=== PATIENT | male | born 1935 | race Caucasian/White ===

== ENCOUNTER → 2020-03-17 10:28 | Outpatient (BNVA) | payer MEDICARE, OTHER, SELFPAY | PROVIDERS: Family Provider Family Medicine; PCP Physician Assistant; Referring Provider Physician Assistant; Visit Provider Anesthesiology Pain Medicine | DX: M51.16 Intervertebral disc disorders with radiculopathy, lumbar region (principal); M51.17 Intervertebral disc disorders with radiculopathy, lumbosacral region; M47.816 Spondylosis without myelopathy or radiculopathy, lumbar region; M48.062 Spinal stenosis, lumbar region with neurogenic claudication; M54.9 Dorsalgia, unspecified; Z79.891 Long term (current) use of opiate analgesic | CPT/HCPCS: 99203; 99204 ==

== ENCOUNTER 2022-01-08 10:21 | Emergency (ER) | payer MEDICARE, OTHER, SELFPAY ==
[2022-01-08] VITALS (12 sets, daily range): BP systolic 103–149; BP diastolic 69–87; PULSE 85–101; RESP 18; O2SAT 93–98; BMI 31.3
--- NOTE | 2022-01-08 10:26 | W.ED.GIBLEED ---
HPI - GI Bleed General: Chief complaint: GI Bleed Stated complaint: RECTAL BLEED Time Seen by Provider: 01/08/22 10:26 History of Present Illness: Mr. Snyder is an 86-year-old gentleman on full dose aspirin for history of stroke who presents to the emergency department due to blood in stool. He reports being at his baseline health the past few days without abdominal discomfort or changes in bowel movements. This morning he noted quite a bit of blood that was dark red in his stool and toilet bowl. He also subsequently developed left anterior chest discomfort. Reports episode remotely of blood in stool in the past. Remote history of colonoscopy. No other specific changes in health, exacerbating, or alleviating factors identified. Onset (ago): hour(s) Review of Systems General: Reports: 10 or more systems reviewed and unremarkable except in HPI and below PFSH ED PFSH: Medical History CVA (cerebral vascular accident) Diabetes Diastolic dysfunction Dyslipidemia HTN (hypertension) Sleep apnea Family History Father Stroke Mother CHF (congestive heart failure) Social History Smoking and tobacco status: former smoker Second hand smoke exposure: No Alcohol intake: current Alcohol intake frequency: 0-2 Drinks per Day Alcohol type: hard liquor Household members: spouse Marital status: service: No Current occupational status: retired History of recent travel: No Physical Exam Const: COMMON NORMALS: alert GENERAL APPEARANCE: cooperative and well developed HENMT: COMMON NORMALS: normocephalic and atraumatic HEAD & SCALP: normocephalic and atraumatic Eye: COMMON NORMALS: conjunctivae normal CONJUNCTIVA: Yes conjunctivae normal SCLERA: sclerae normal Neck/C-Spine: COMMON NORMALS: supple GENERAL: Yes trachea midline Resp: COMMON NORMALS: clear to auscultation bilaterally EFFORT & INSPECTION: Yes able to speak in complete sentences AUSCULTATION: clear to auscultation bilaterally Cardio: COMMON NORMALS: regular rate and regular rhythm RATE: regular rate RHYTHM: regular rhythm GI: COMMON NORMALS: Soft to palpation PALPATION: Yes Soft to palpation and No Tenderness to palpation present (GI) Extremity: GENERAL: Yes normal exam except as noted and No edema Neuro: COMMON NORMALS: moves all extremities SENSORIUM/ORIENTATION: Yes alert and No Orientation impaired Psych: COMMON NORMALS: mental status grossly normal and Normal thought process present THOUGHT PROCESS: Normal thought process present Course ED course: - Patient was seen and evaluated by me at bedside - Patient placed on cardiac monitors, IV access obtained - Initial evaluation notable for exam as above. Vitally satisfactory. - Labs personally interpreted by me. EKG showing atrial fibrillation with right bundle branch block. No STEMI. -IV fluids given - Labs notable for no leukocytosis, normal hemoglobin. INR normal. Metabolic panel without significant abnormality, BUN normal. Delta troponin negative. - Imaging notable for no acute pathology identified on CT abdomen pelvis - Upon serial reexamination after treatment the patient was similar - Based on patient history, evaluation, and testing as interpreted the most likely cause of the patient's condition is GI bleed - The results of ED evaluation were discussed with the patient including possible disposition options. I offered admission which the patient declined. I discussed prescriptions and/or symptomatic cares (if applicable) including appropriate and responsible use, followup plan, and return precautions. The patient verbalized understanding and felt safe for discharge. - Patient discharged in satisfactory condition. Note: Click bubbles or prepopulated scott in note writing are used for assistance with data collection and billing and are inherently more limited than narrative and other text portions of this note. Please use narrative for additional clinical history and defer to narrative/free test for any case of contradictory information. If information appears in only free text or click bubble it should be considered present or absent as reported. Please contact note typewriter assembler for clarifications of clinical information or contradictory information. MDM is a brief summary, contradictory or erroneous seeming information should be clarified and full note should be reviewed. Vital Signs: Vital signs: Vital Signs Pulse Rate 101 H 01/08/22 16:37 Respiratory Rate 18 01/08/22 16:37 Blood Pressure 149/83 01/08/22 16:37 Pulse Oximetry 95 01/08/22 16:37 Oxygen Delivery Sc thod 01/08/22 16:37 MDM - GI Bleed Medical Decision Making 86-year-old gentleman on aspirin presenting with GI bleed. Patient did not have recurrence while in the emergency department. Vitals and hemoglobin satisfactory. Offered admission which patient declined. Satisfactory for outpatient management with follow-up for endoscopy. Strict return precautions given. Medical Records I reviewed the patient's medical records. Lab Data I reviewed the patient's lab results. : 01/08/22 10:32 01/08/22 10:40 Radiology Impressions Abdomen/Pelvis CT 01/08/22 12:07 IMPRESSION: 1. No acute abdominal or pelvic findings. 2. Distal colon and sigmoid diverticulosis without acute diverticulitis. No active areas of hemorrhage. 3. LEFT renal cyst. 4. No adenopathy or free air. Laboratory Results WBC 9.0 10^3/uL (4.0-10.0) 01/08/22 10:32 RBC 4.51 10^6/uL (4.1-5.3) 01/08/22 10:32 Hgb 15.3 g/dL (11.7-16.6) 01/08/22 10:32 Hct 44.8 % (42.0-52.0) 01/08/22 10:32 MCV 99.3 fl (80-94) H 01/08/22 10:32 MCH 33.9 pg (28.0-34.0) 01/08/22 10:32 MCHC 34.2 g/dL (30.0-36.0) 01/08/22 10:32 RDW 12.9 % (12.1-15.1) 01/08/22 10:32 Plt Count 215 10^3/cmm (130-400) 01/08/22 10:32 MPV 12.1 fL (7.4-10.4) H 01/08/22 10:32 Neut % (Auto) 53.4 % 01/08/22 10:32 Lymph % (Auto) 35.5 % 01/08/22 10:32 [place] % (Auto) 8.1 % 01/08/22 10:32 Eos % (Auto) 0.9 % 01/08/22 10:32 Baso % (Auto) 1.3 % 01/08/22 10:32 Neut # (Auto) 4.78 10^3/uL (1.8-7.7) 01/08/22 10:32 Lymph # (Auto) 3.2 10^3/uL (0.8-4.8) 01/08/22 10:32 [place] # (Auto) 0.7 10^3/uL (0.2-0.9) 01/08/22 10:32 Eos # (Auto) 0.1 10^3/uL (0.0-0.8) 01/08/22 10:32 Baso # (Auto) 0.1 10^3/uL (0.0-0.1) 01/08/22 10:32 Nucleated RBC % (auto) 0 % 01/08/22 10:32 Nucleated RBCs # 0.0 /100WBC 01/08/22 10:32 PT 13.20 SECONDS (12.1-14.9) 01/08/22 10:32 INR 0.97 (0.8-1.2) 01/08/22 10:32 APTT 23.6 SECONDS (23.9-36.7) L 01/08/22 10:32 Sodium 138 mmol/L (136-145) 01/08/22 10:40 Potassium 4.7 mmol/L (3.5-5.1) 01/08/22 10:40 Chloride 101 mmol/L (98-107) 01/08/22 10:40 Carbon Dioxide 25 mmol/L (22-29) 01/08/22 10:40 Anion Gap 16.7 (5-19) 01/08/22 10:40 BUN 15 mg/dL (8-23) 01/08/22 10:40 Creatinine 1.2 mg/dL (0.7-1.2) 01/08/22 10:40 GFR Calculation Not Reportable 01/08/22 10:40 Glucose 148 mg/dL (65-115) H 01/08/22 10:40 Calculated Osmolality 290 mOsm/kg (285-295) 01/08/22 10:40 Lactate 1.9 mmol/L (0.5-2.2) 01/08/22 14:53 Calcium 9.3 mg/dL (8.5-10.5) 01/08/22 10:40 Total Bilirubin 0.5 mg/dL (0.15-1.2) 01/08/22 10:40 AST 34 U/L (0-40) 01/08/22 10:40 ALT 25 U/L (0-41) 01/08/22 10:40 Alkaline Phosphatase 42 IU/L (40-130) 01/08/22 10:40 Troponin T Baseline 50 ng/L (0-15) H 01/08/22 10:40 Troponin T 120 Minute 41.41 ng/L (0-15) H 01/08/22 12:40 Delta Troponin T -8.59 ABS# (0-10) L 01/08/22 12:40 Total Protein 6.6 g/dL (6.6-8.7) 01/08/22 10:40 Albumin 3.8 g/dL (3.5-5.2) 01/08/22 10:40 Globulin 2.8 g/dL (1.3-4.6) 01/08/22 10:40 Blood Type AB Positive 01/08/22 10:40 Rho(D) Type Positive 01/08/22 10:40 Antibody Screen Negative 01/08/22 10:40 Discharge Plan Discharge Patient Disposition: Home Clinical Impression: GI bleed Condition: Stable Prescriptions: New Protonix 40 mg tablet,delayed release (DR/EC) 40 mg PO BID 14 Days Qty: 28 0RF No Action aspirin 325 mg tablet 325 mg PO DAILY nitroglycerin 0.4 mg tablet, sublingual 0.4 mg SUBLINGUAL Q5M PRN (Reason: Chest Pain) Rx Instructions: do not exceed 3 doses per episode gabapentin 100 mg capsule 100 mg PO BID Qty: 60 0RF prednisone 20 mg Tablet See Rx Instructions .ROUTE .COMPLEX Rx Instructions: DIRECTED FOR 21 DAYS Discharge Orders: Discharge ED (Routine); Ordered 01/08/22 Ordered By: Jimmie Zhong Referrals: Jeni Tai PA [Primary Care Provider] - Discharge Diet: Usual diet Discharge Activity: Increase activity as tolerated Activity Restrictions/Additional Instructions: Thank you for visiting the emergency department. You were seen and evaluated for blood per rectum. The exact cause of the symptoms is unclear. I recommend follow-up with your primary care provider and GI/general surgery for consideration of endoscopy. I will message case management for assistance with scheduling this. Please return to the emergency department for recurrent episodes, lightheadedness, dizziness, syncope, shortness of breath, chest pain, or anything else that you are concerned about a feel needs emergency department evaluation. Coding Level of Care Code ED Agricultural Equipment Design Engineer for Christos Fwjanie Exam Comprehensive
[2022-01-08 10:54] LABS: Basophils # 0.1 10^3/uL (0.0-0.1); Basophils % 1.3 %; Eosinophils # 0.1 10^3/uL (0.0-0.8); Eosinophils % 0.9 %; Hematocrit 44.8 % (42.0-52.0); Hemoglobin 15.3 g/dL (11.7-16.6); Lymphocytes # 3.2 10^3/uL (0.8-4.8); Lymphocytes % 35.5 %; Mean Corpuscular HGB Conc 34.2 g/dL (30.0-36.0); Mean Corpuscular Hemoglobin 33.9 pg (28.0-34.0); Mean Corpuscular Volume 99.3 fl (80-94); Mean Platelet Volume 12.1 fL (7.4-10.4); Monocytes # 0.7 10^3/uL (0.2-0.9); Monocytes % 8.1 %; Neutrophils # 4.78 10^3/uL (1.8-7.7); Neutrophils % 53.4 %; Nucleated Red Blood Cells % 0 %; Platelet Count 215 10^3/cmm (130-400); Red Blood Count 4.51 10^6/uL (4.1-5.3); Red Cell Distribution Width 12.9 % (12.1-15.1)
--- NOTE | 2022-01-08 11:05 | ECG_ITS ---
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 Measurements Intervals [place] Rate: 83 P: [place]: QRS: 38 QRSD: 138 T: -22 QT: 396 QTc: 467 Interpretive Statements ATRIAL FIBRILLATION RIGHT BUNDLE BRANCH BLOCK [120+ ms QRS DURATION, UPRIGHT V1, 40+ ms S IN I/aVL/V4/V5/V6] No previous ECG available for comparison Electronically Signed On 01-08-2022 17:23:01 CDT by Krystle Ortiz M.D. [id number] f
[2022-01-08 11:15] LABS: INR 0.97 (0.8-1.2)
[2022-01-08 11:16] LABS: Partial Thromboplastin Time 23.6 SECONDS (23.9-36.7)
[2022-01-08 11:18] LABS: Alanine Aminotransferase 25 U/L (0-41); Albumin Level 3.8 g/dL (3.5-5.2); Alkaline Phosphatase 42 IU/L (40-130); Aspartate Amino Transferase 34 U/L (0-40); Blood Urea Nitrogen 15 mg/dL (8-23); Calcium 9.3 mg/dL (8.5-10.5); Carbon Dioxide 25 mmol/L (22-29); Chloride 101 mmol/L (98-107); Globulin 2.8 g/dL (1.3-4.6); Glucose 148 mg/dL (65-115); Osmolality Calculated 290 mOsm/kg (285-295); Sodium 138 mmol/L (136-145); Total Bilirubin 0.5 mg/dL (0.15-1.2); Total Protein 6.6 g/dL (6.6-8.7)
[2022-01-08 11:40] LABS: Anion Gap 16.7 (5-19); Potassium 4.7 mmol/L (3.5-5.1)
[2022-01-08 12:07] LABS: Troponin(5th) Baseline 50 ng/L (0-15)
--- NOTE | 2022-01-08 12:07 | CT_ITS ---
WS: [id number] CT ABDOMEN AND PELVIS WITH CONTRAST HISTORY: GI bleed TECHNIQUE: Imaging performed of the abdomen and pelvis with IV contrast. Single phase imaging of the abdomen. Coronal and sagittal reformats are submitted. All CT scans at [facility] use at [address] one of these dose optimization techniques: automated exposure control; mA and/or kV adjustment per patient size (includes targeted exams where dose is matched to clinical indication); or iterative re construction. IV CONTRAST: Omnipaque 350; 95 mL IV. Oral contrast: No DLP: 740.33 mGy.cm COMPARISON: 11/04/2015 Lower thorax: Lung bases are clear. Mild cardiac enlargement. No hiatal hernia. Liver/biliary system: Normal size liver with diffuse mild hepatic steatosis. Gallbladder: Normal. No gallstones or wall thickening. No pericholecystic fluid. Pancreas: Normal size pancreas and pancreatic duct. No adjacent inflammation. Spleen: Normal size spleen. No mass or infarct. Adrenal glands: Normal. Right kidney: Mild perinephric stranding and mild atrophy. No solid mass. Left kidney: Mild atrophy and perinephric stranding. Exophytic cyst from the lower pole measures 4.0 x 3.9 cm. Aorta: Mild atherosclerosis aorta. Lymphadenopathy: None. Free fluid: None. GI tract: Normal appearance of the stomach and small bowel. Numerous diverticula in the descending an d sigmoid colon. No adjacent inflammation. The appendix is not definitely identified. No secondary ev idence for appendicitis. No focal enhancement or active bleeding identified. Abdominal wall: Unremarkable abdominal wall. No hernia. Pelvis: No free fluid or adenopathy. No distended urinary bladder. Bones: Mild curvature lumbar spine. L5 anterolisthesis by [address]/CT abdomen pelvis w con* [id number] IMPRESSION: 1. No acute abdominal or pelvic findings. 2. Distal colon and sigmoid diverticulosis without acute diverticulitis. No ac tive areas of hemorrhage. 3. LEFT renal cyst. 4. No adenopathy or free air.
[2022-01-08 12:09] LABS: Lactate (Lactic Acid level) 3.2 mmol/L (0.5-2.2)
[2022-01-08] MEDS: sodium chloride 0.9% 500 ML 999 ML IV (12:34)
--- NOTE | 2022-01-08 13:05 | ECG_ITS ---
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 Measurements Intervals [place] Rate: 94 P: [place]: QRS: 56 QRSD: 144 T: -23 QT: 381 QTc: 478 Interpretive Statements ATRIAL FIBRILLATION WITH ABERRANT CONDUCTION OR VENTRICULAR PREMATURE COMPLEXES RIGHT BUNDLE BRANCH BLOCK [120+ ms QRS DURATION, UPRIGHT V1, 40+ ms S IN I/aVL/V4/V5/V6] Compared to ECG 01/08/2022 10:39:59 Ventricular premature complex(es) now present Aberrant conduction of supraventricular beat(s) now present Electronically Signed On 01-08-2022 17:47:22 CDT by Krystle Ortiz M.D. [id number]
[2022-01-08 13:47] LABS: Troponin 5 2HR 41.41 ng/L (0-15)
[2022-01-08] MEDS: iohexol 350 mg/mL 100 mL Btl IV (13:47)
[2022-01-08 13:50] LABS: Troponin 5 2HR Delta -8.59 ABS# (0-10)
[2022-01-08 16:03] LABS: Lactate (Lactic Acid level) 1.9 mmol/L (0.5-2.2)
== END 2022-01-08 16:39 | disposition home or self-care (01) ==
PROVIDERS: Emergency Provider Emergency Medicine; PCP Physician Assistant
DX: K92.2 Gastrointestinal hemorrhage, unspecified (principal); Z79.82 Long term (current) use of aspirin; Z86.73 Personal history of transient ischemic attack (TIA), and cerebral infarction without residual deficits; E11.9 Type 2 diabetes mellitus without complications; E78.5 Hyperlipidemia, unspecified; I10 Essential (primary) hypertension; Z87.891 Personal history of nicotine dependence
CPT/HCPCS: 74177; 80053; 83605; 84484; 85025; 85610; 85730; 86850; 86900; 93005; 99285; J7040; Q9967

== ENCOUNTER 2022-03-01 15:35 | Emergency (ER) | payer MEDICARE, OTHER, SELFPAY ==
[2022-03-01 15:39] VITALS: BP 145/94; PULSE 78; RESP 16; TEMP 36.7; O2SAT 96
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
[2022-03-01] MEDS: HYDROcodone-acetaminophen 5-325 mg Tablet 1 TAB PO (17:44)
[2022-03-01] MEDS: cephALEXin 500 mg Capsule PO (17:44)
[2022-03-01] MEDS: tetanus-dipt-pertussis 0.5 mL SDV IM (17:48)
--- NOTE | 2022-03-02 10:11 | DCPLANNER ---
Addendum entered by Mariam Spargue 03/03/22 15:09: manager wholesale had the following message from the ortho clinic regarding follow up appointment: Patient stated he gets around fine and declined this appt with Dr. Serra Original Note: manager wholesale had message to schedule a follow up appointment for patient with ortho. manager wholesale sent patients information to the front office staff at ortho. Patients information will be printed and reviewed. Clinic will call patient with appointment information.
== END 2022-03-01 17:56 | disposition home or self-care (01) ==
PROVIDERS: Emergency Provider Emergency Medicine; PCP Physician Assistant
DX: S90.851A Superficial foreign body, right foot, initial encounter (principal); Z79.82 Long term (current) use of aspirin; Z86.73 Personal history of transient ischemic attack (TIA), and cerebral infarction without residual deficits; E11.9 Type 2 diabetes mellitus without complications; E78.5 Hyperlipidemia, unspecified; I10 Essential (primary) hypertension; Z87.891 Personal history of nicotine dependence; W34.00XA Accidental discharge from unspecified firearms or gun, initial encounter; Z23 Encounter for immunization
CPT/HCPCS: 73620; 90471; 90715; 99284

== ENCOUNTER 2022-08-25 11:54 | Emergency (ER) | payer MEDICARE, OTHER, SELFPAY ==
[2022-08-25 11:56] VITALS: BP 153/96; PULSE 76; RESP 16; TEMP 36.8; O2SAT 97; BMI 30.4
[2022-08-25 12:03] VITALS: BP 153/96; PULSE 77; RESP 21; O2SAT 96
--- NOTE | 2022-08-25 12:12 | ED_ITS ---
HPI - Back Pain/Injury General: Chief Complaint: Back Pain/Injury Stated Complaint: lower back pain. fall tuesday Time Seen by Provider: 08/25/22 11:58 Mode of arrival: EMS History of Present Illness: Patient presents to the ER with a history of falling on his buttock region approximately 5 days ago. Patient states he landed more on his right side than his left. Patient does have a history of chronic low back pain this seems to have worsened his low back pain as well as injured his sacral area. Pain does stay in his areas and does not radiate down his legs. Patient has no problems with bowel or bladder. MD elicited complaint: fall Pertinent past history: prior back pain and recent trauma Onset (ago): day(s) (Approximately 5 days ago) Severity: moderate Similar Symptoms Previously: Yes Quality: dull and aching Location: lumbar spine and sacrum Radiation: none Exacerbating factors: movement Relieving factors: none Associated symptoms: Reports no associated symptoms; Deny abdominal pain, chills, dysuria, fever(s), nausea or vomiting Treatments prior to arrival: other (EMS administered 30 mg of Toradol in route) Work related injury: No Review of Systems General: Reports: 10 or more systems reviewed and unremarkable except in HPI and below Const: Denies: fever(s) or chills Eyes: Denies: change in vision ENMT: Denies: throat pain or odynophagia Card: Denies: chest pain, palpitations, irregular heart rhythm or edema Resp: Denies: dyspnea, productive cough or non-productive cough GI: Reports: diarrhea; Denies: abdominal pain, nausea or vomiting : Denies: flank pain, difficulty urinating, dysuria or urinary frequency Musc: Reports: back pain Skin/Breast: Denies: rash, pruritus or erythema Neuro: Denies: headache(s), numbness in extremities or weakness in extremities Psych: Denies: anxiety or depression Endo: Denies: polyuria or polydipsia Amado/Lymph: Denies: easy bruising or easy bleeding All/Imm: Denies: urticaria or throat swelling PFSH ED PFSH: Medical History CVA (cerebral vascular accident) Diabetes Diastolic dysfunction Dyslipidemia HTN (hypertension) Sleep apnea Family History Father Stroke Mother CHF (congestive heart failure) Social History Smoking and tobacco status: former smoker Second hand smoke exposure: No Alcohol intake: current Alcohol intake frequency: 0-2 Drinks per Day Alcohol type: hard liquor Household members: spouse Marital status: service: No Current occupational status: retired Physical Exam Const: COMMON NORMALS: no acute distress, average body habitus, patient oriented x3, no limitations, healthy appearing, alert and well nourished HENMT: COMMON NORMALS: normocephalic, atraumatic and hearing grossly normal bilaterally HEAD & SCALP: normocephalic and atraumatic Neck/C-Spine: COMMON NORMALS: full ROM, no lymphadenopathy, supple, no JVD and Thyroid normal THYROID: Thyroid normal Chest: COMMONS NORMALS: normal inspection of the chest and normal palpation of entire chest wall Resp: COMMON NORMALS: normal respiratory effort, No retractions, No use of accessory muscles and clear to auscultation bilaterally AUSCULTATION: clear to auscultation bilaterally Cardio: COMMON NORMALS: no JVD, regular rate, regular rhythm, S1 normal heart sound present, S2 normal heart sound present and No gallops present (Cardio) RATE: regular rate RHYTHM: regular rhythm HEART SOUNDS: S1 normal heart sound present and S2 normal heart sound present GI: COMMON NORMALS: Normal to inspection, nondistended, normoactive bowel sounds present, Soft to palpation, non-tender, No hepatosplenomegaly present and no masses PALPATION: Yes Soft to palpation and Yes No hepatosplenomegaly present Back/Pelvis: LUMBAR SPINE/LOWER BACK: Yes paraspinal muscle tenderness (Right greater than left) PELVIS: Yes buttocks normal SACROILIAC JOINTS: Yes SI joint(s) abnormal SI joint details: tender to palpation (On the right side) Extremity: COMMON NORMALS: normal to inspection Neuro: COMMON NORMALS: patient oriented x3, CN's II-XII intact bilaterally, moves all extremities, no focal motor deficits and no sensory deficits noted SENSORIUM/ORIENTATION: Yes alert Course Vital Signs: Vital signs: Vital Signs Temperature 98.2 F 08/25/22 11:56 Pulse Rate 82 08/25/22 13:37 Respiratory Rate 18 08/25/22 13:37 Blood Pressure 158/107 08/25/22 13:37 Pulse Oximetry 97 08/25/22 13:37 Oxygen Delivery Me thod 08/25/22 13:37 MDM - Back Pain/Injury Medical Decision Making Presents to the ER with worsening of acute on chronic low back pain secondary to a fall. History and physical were performed and x-rays were obtained which showed an acute/subacute L2 compression fracture. Upon review of previous x- rays approximately 3 months ago this did not appear on them. Patient states since the Toradol shot in the ambulance his pain is much better controlled and feels comfortable in going home with oral pain medicine. Patient is to follow- up with his family practice physician within the next 1 week for further evaluation and treatment. Patient and family is agreeable to this Differential Diagnosis Unlikely lumbar radiculopathy, sciatica, strain of lumbar region, renal colic, pyelonephritis, thoracic back pain, AAA or discitis Labs Radiology Impressions Lumbar Spine X-Ray 08/25/22 12:12 IMPRESSION: L2 compression deformity as above which may represent acute/subacute compression fracture. Sacrum and Coccyx X-Ray 08/25/22 12:12 IMPRESSION: No acute abnormality of the sacrum or coccyx. Discharge Plan Discharge Patient Disposition: Home Clinical Impression: Closed compression fracture of L2 vertebra Qualifiers: Encounter type: initial encounter Qualified Code(s): S32.020A - Wedge com pression fracture of second lumbar vertebra, initial encounter for closed fracture Fall Qualifiers: Encounter type: initial encounter Qualified Code(s): W19.XXXA - Unspecified fall, initial encounter Condition: Stable Prescriptions: New Percocet 5-325 mg tablet 1 tab PO Q6H PRN (Reason: pain) Qty: 16 0RF No Action aspirin 325 mg tablet 325 mg PO DAILY nitroglycerin 0.4 mg tablet, sublingual 0.4 mg SUBLINGUAL Q5M PRN (Reason: Chest Pain) Rx Instructions: do not exceed 3 doses per episode gabapentin 100 mg capsule 100 mg PO BID Qty: 60 0RF prednisone 20 mg Tablet See Rx Instructions .ROUTE .COMPLEX Rx Instructions: DIRECTED FOR 21 DAYS Discharge Orders: Discharge ED (Routine); Ordered 08/25/22 Ordered By: Darrell Davies Referrals: Jeni Tai PA [Primary Care Provider] - 1 week Discharge Activity: Use walker/crutches as instructed Patient Instructions: Vertebral Compression Fracture (ED), Opioid Safety, Pain Management, Fall Prevention Coding Level of Care Code ED [facility] for Christos Martinez
--- NOTE | 2022-08-25 12:12 | XR_ITS ---
WS: [id number] XR sacrum coccyx min 2V [id number] REASON FOR EXAM: fall pain FINDINGS: No fracture or dislocation identified. XR/XR sacrum coccyx min 2V [id number] IMPRESSION: No acute abnormality of the sacrum or coccyx.
--- NOTE | 2022-08-25 12:12 | XR_ITS ---
WS: [id number] XR lumbar spine 2-3V* [id number] REASON FOR EXAM: fall, pain FINDINGS: Mild rotatory scoliosis convex left. Superior endplate compression deformity of L2 which may represent acute or subacute compression fract ure. No significant encroachment on the lumbar spinal canal. Moderate anterior osteophytosis of the vertebral bodies L1-L5. Moderate narrowing of the L5-S1 disc space with large anterior osteophytes. Remainder of the disc spa jaguar are relatively well-preserved. 3 to 4 mm of anterolisthesis of L5 on S1. Moderate degenerative change in the facet joints at L5-S1. XR/XR lumbar spine 2-3V* [id number] IMPRESSION: L2 compression deformity as above which may represent acute/subacute compressio n fracture.
[2022-08-25 13:37] VITALS: BP 158/107; PULSE 82; RESP 18; O2SAT 97
[2022-08-25 13:51] VITALS: BP 158/107; PULSE 74; RESP 16; O2SAT 96
== END 2022-08-25 13:52 | disposition home or self-care (01) ==
PROVIDERS: Emergency Provider Emergency Medicine; PCP Physician Assistant
DX: S32.020A Wedge compression fracture of second lumbar vertebra, initial encounter for closed fracture (principal); Z79.82 Long term (current) use of aspirin; Z86.73 Personal history of transient ischemic attack (TIA), and cerebral infarction without residual deficits; E11.9 Type 2 diabetes mellitus without complications; E78.5 Hyperlipidemia, unspecified; I10 Essential (primary) hypertension; Z87.891 Personal history of nicotine dependence; W19.XXXA Unspecified fall, initial encounter
CPT/HCPCS: 72100; 72220; 99283

== ENCOUNTER 2022-08-31 14:11 | Emergency (ER) | payer MEDICARE, OTHER, SELFPAY ==
[2022-08-31] VITALS (8 sets, daily range): BP systolic 103–149; BP diastolic 53–81; PULSE 73–85; RESP 16–18; TEMP 36.3; O2SAT 93–99; BMI 30.4
--- NOTE | 2022-08-31 14:44 | ED_ITS ---
HPI - Weakness General: Chief complaint: Weakness Stated complaint: WEAKNESS/ GI BLEED Time Seen by Provider: 08/31/22 14:23 History of Present Illness: This 87-year-old male with a history of hypertension, diabetes, CVA and recent L2 compression fracture, presents to the ER with progressively worsening pain and weakness. Daughter who brought patient to the ER notes that patient has not been eating and drinking well for the last several days and the back pain has progressively worsened to where patient finds it hard to mobilize without support. He lives by himself, denies fever but has nausea. There is no reported vomiting. Patient had a fall last week during which x-ray revealed an L2 compression fracture. Patient adds that since last night, he has had black tarry stools. He is on aspirin. Associated symptoms: Denies chest pain, chills, dysuria or headache(s) Review of Systems Const: Denies: chills, body aches or change in appetite ENMT: Denies: throat pain, dental pain or nasal discharge Card: Denies: chest pain or lightheadedness : Denies: dysuria Musc: Denies: neck pain or back pain Neuro: Denies: headache(s) or weakness in extremities Psych: Denies: depression PFSH ED PFSH: Medical History (Updated 08/31/22 @ 17:54 by Marilee Holt MD) CVA (cerebral vascular accident) Diabetes Diastolic dysfunction Dyslipidemia GI bleed HTN (hypertension) Pain management contract agreement Sleep apnea Surgical History (Updated 08/31/22 @ 17:25 by Cruz Reagan MD) S/P appendectomy Family History Father Stroke Mother CHF (congestive heart failure) Social History Smoking and tobacco status: former smoker Second hand smoke exposure: No Alcohol intake: current Alcohol intake frequency: 0-2 Drinks per Day Alcohol type: hard liquor Household members: spouse Marital status: service: No Current occupational status: retired Physical Exam Const: COMMON NORMALS: no acute distress, patient oriented x3, no limitations and alert HENMT: COMMON NORMALS: normocephalic HEAD & SCALP: normocephalic Neck/C-Spine: COMMON NORMALS: full ROM and supple Chest: COMMONS NORMALS: normal inspection of the chest Resp: COMMON NORMALS: normal respiratory effort, No retractions, No use of accessory muscles and clear to auscultation bilaterally AUSCULTATION: clear to auscultation bilaterally Cardio: COMMON NORMALS: regular rate, regular rhythm and No murmurs present (Cardio) RATE: regular rate RHYTHM: regular rhythm GI: COMMON NORMALS: Normal to inspection, nondistended, normoactive bowel sounds present and non-tender : COMMON NORMALS: Yes no CVA tenderness BLADDER/KIDNEY EXAM: Yes no CVA tenderness Back/Pelvis: COMMON NORMALS: no CVA tenderness and no thoracic nor lumbar tenderness OTHER: Tenderness, lower lumbar spine. No redness, swelling or deformity. Extremity: GENERAL: Yes normal exam except as noted Neuro: COMMON NORMALS: patient oriented x3 and no focal motor deficits SENSORIUM/ORIENTATION: Yes alert Psych: COMMON NORMALS: mental status grossly normal and cooperative Course Consultations: Consultation #1: Case discussed with Dr. Patterson at [facility]. He accepted patient in transfer. Vital Signs: Vital signs: Vital Signs Temperature 97.4 F L 08/31/22 14:20 Pulse Rate 73 08/31/22 18:01 Respiratory Rate 16 08/31/22 16:35 Blood Pressure 149/77 08/31/22 18:01 Pulse Oximetry 96 08/31/22 18:01 Oxygen Delivery Me thod 08/31/22 18:01 MDM - Weakness Medical Decision Making Medical decision making: This 87-year-old male with a history of A-fib, L2 compression fracture and is on aspirin, presents to the ER with melenic stools that started last night. He has been having it intermittently for a while. Rectal exam reveals melena that is guaiac positive. Hemoglobin is 8.7. IV Protonix started. Case discussed with Dr. Reagan, hospitalist on-call. He notes that there is no GI or surgery coverage in this facility till next week. He recommends transferring patient to a tertiary center for further assessment and treatment. We called around to different hospitals and were able to get a bed for him at [facility]. Case discussed with Dr. Patterson at [facility] and he accepted patient in transfer. Lab Data 08/31/22 13:56 08/31/22 13:56 Laboratory Results WBC 7.4 10^3/uL (4.0-10.0) 08/31/22 13:56 RBC 2.71 10^6/uL (4.1-5.3) L 08/31/22 13:56 Hgb 8.4 g/dL (11.7-16.6) L 08/31/22 13:56 Hct 27.1 % (42.0-52.0) L 08/31/22 13:56 MCV 100.0 fl (80-94) H 08/31/22 13:56 MCH 31.0 pg (28.0-34.0) 08/31/22 13:56 MCHC 31.0 g/dL (30.0-36.0) 08/31/22 13:56 RDW 17.4 % (12.1-15.1) H 08/31/22 13:56 Plt Count 220 10^3/cmm (130-400) 08/31/22 13:56 MPV 12.2 fL (7.4-10.4) H 08/31/22 13:56 Neut % (Auto) 51.5 % 08/31/22 13:56 Lymph % (Auto) 29.5 % 08/31/22 13:56 Bucks % (Auto) 15.0 % 08/31/22 13:56 Eos % (Auto) 1.8 % 08/31/22 13:56 Baso % (Auto) 1.4 % 08/31/22 13:56 Neut # (Auto) 3.81 10^3/uL (1.8-7.7) 08/31/22 13:56 Lymph # (Auto) 2.2 10^3/uL (0.8-4.8) 08/31/22 13:56 Bucks # (Auto) 1.1 10^3/uL (0.2-0.9) H 08/31/22 13:56 Eos # (Auto) 0.1 10^3/uL (0.0-0.8) 08/31/22 13:56 Baso # (Auto) 0.1 10^3/uL (0.0-0.1) 08/31/22 13:56 Nucleated RBC % (auto) 0 % 08/31/22 13:56 Nucleated RBCs # 0.0 /100WBC 08/31/22 13:56 Sodium 141 mmol/L (136-145) 08/31/22 13:56 Potassium 4.2 mmol/L (3.5-5.1) 08/31/22 13:56 Chloride 104 mmol/L (98-107) 08/31/22 13:56 Carbon Dioxide 23 mmol/L (22-29) 08/31/22 13:56 Anion Gap 18.2 (5-19) 08/31/22 13:56 BUN 38 mg/dL (8-23) H 08/31/22 13:56 Creatinine 1.3 mg/dL (0.7-1.2) H 08/31/22 13:56 GFR Calculation Not Reportable 08/31/22 13:56 Glucose 117 mg/dL (65-115) H 08/31/22 13:56 Calculated Osmolality 302 mOsm/kg (285-295) H 08/31/22 13:56 Calcium 9.0 mg/dL (8.5-10.5) 08/31/22 13:56 Iron 16 ug/dL (59-158) L 08/31/22 14:42 TIBC 326 mcg/dl 08/31/22 14:42 % Saturation 4.9 % (20-50) L 08/31/22 14:42 Unsat Iron Binding 310 ug/dL (112-347) 08/31/22 14:42 Total Bilirubin 0.3 mg/dL (0.15-1.2) 08/31/22 13:56 AST 31 U/L (0-40) 08/31/22 13:56 ALT 19 U/L (0-41) 08/31/22 13:56 Alkaline Phosphatase 73 U/L (40-130) 08/31/22 13:56 Total Protein 6.3 g/dL (6.6-8.7) L 08/31/22 13:56 Albumin 3.5 g/dL (3.5-5.2) 08/31/22 13:56 Globulin 2.8 g/dL (1.3-4.6) 08/31/22 13:56 Vitamin B12 > 2000 pg/mL (232-1245) H 08/31/22 14:42 Folate 9.5 ng/mL (4.5-32.2) 08/31/22 14:42 TSH 4.03 uIU/mL (0.27-4.20) 08/31/22 14:42 Urine Color Yellow (Yellow) 08/31/22 17:47 Urine Appearance Clear (CLEAR) 08/31/22 17:47 Urine pH 6.5 (5-7) 08/31/22 17:47 Ur Specific [place] 1.015 (1.005-1.030) 08/31/22 17:47 Urine Protein Neg (Negative) 08/31/22 17:47 Urine Glucose (UA) Norm (Normal) 08/31/22 17:47 Urine Ketones 1+ (Negative) H 08/31/22 17:47 Urine Blood Neg (Negative) 08/31/22 17:47 Urine Nitrate Negative (Negative) 08/31/22 17:47 Urine Bilirubin Neg (Negative) 08/31/22 17:47 Urine Urobilinogen Neg mg/dL (Negative) 08/31/22 17:47 Ur Leukocyte Esterase Negative (Negative) 08/31/22 17:47 Discharge Plan Discharge Patient Disposition: Xfer Short-Term Hosp Clinical Impression: Acute upper GI bleed, Anemia, Melena, Generalized weakness Condition: Stable Referrals: Jeni Tai PA [Primary Care Provider] - Coding Level of Care Code ED [facility] for Christos Martinez
[2022-08-31 14:50] LABS: Basophils # 0.1 10^3/uL (0.0-0.1); Basophils % 1.4 %; Eosinophils # 0.1 10^3/uL (0.0-0.8); Eosinophils % 1.8 %; Hematocrit 27.1 % (42.0-52.0); Hemoglobin 8.4 g/dL (11.7-16.6); Lymphocytes # 2.2 10^3/uL (0.8-4.8); Lymphocytes % 29.5 %; Mean Platelet Volume 12.2 fL (7.4-10.4); Monocytes # 1.1 10^3/uL (0.2-0.9); Neutrophils # 3.81 10^3/uL (1.8-7.7); Neutrophils % 51.5 %; Nucleated Red Blood Cells % 0 %; Platelet Count 220 10^3/cmm (130-400); Red Blood Count 2.71 10^6/uL (4.1-5.3); Red Cell Distribution Width 17.4 % (12.1-15.1); White Blood Count 7.4 10^3/uL (4.0-10.0)
[2022-08-31 15:08] LABS: Alanine Aminotransferase 19 U/L (0-41); Albumin Level 3.5 g/dL (3.5-5.2); Alkaline Phosphatase 73 U/L (40-130); Anion Gap 18.2 (5-19); Aspartate Amino Transferase 31 U/L (0-40); Blood Urea Nitrogen 38 mg/dL (8-23); Carbon Dioxide 23 mmol/L (22-29); Chloride 104 mmol/L (98-107); Globulin 2.8 g/dL (1.3-4.6); Glucose 117 mg/dL (65-115); Osmolality Calculated 302 mOsm/kg (285-295); Potassium 4.2 mmol/L (3.5-5.1); Sodium 141 mmol/L (136-145); Total Bilirubin 0.3 mg/dL (0.15-1.2); Total Protein 6.3 g/dL (6.6-8.7)
[2022-08-31] MEDS: sodium chloride 0.9% 1,000 ML 999 ML IV (15:16)
[2022-08-31] MEDS: pantoprazole 40 mg SDV 80 MG IVP (16:47)
--- NOTE | 2022-08-31 17:21 | PM.CONSULT ---
Providers/Reason For Consult Consulting Physician/Specialty*: MD Tez/internal medicine Reason for Consult*: Acute anemia with a possibility of GI bleed Requesting Physician: Dr. Holt/ER physician Primary Care Provider: Jeni Tai History of Present Illness History of Present Illness Lewis Snyder is a 87 year old male with past medical history of CVA, type 2 diabetes mellitus, diastolic dysfunction of the heart, atrial fibrillation not on anticoagulation, chronic back pain for which he follows up with pain clinic presents to the ER today because of increasing weakness. As per the patient and caregiver at bedside he has been having recurrent falls which has been increasing for the last month or 2 with most recent fall causing him to have increased back pain when he was found to have L2 compression fracture. As per the family members and patient he has been having occasional episodes of black tarry bowel movements for last 6 months increase for last 3 days. Patient is taking ibuprofen daily for last 1 week along with aspirin 325 mg at least twice daily for last couple of days for pain along with Percocets. Patient has been having dizziness and increased unsteadiness on his feet along with nausea but no vomiting or hematemesis. Patient denies any difficulty breathing, chest pain. Examination is laying comfortably in bed, pallor present without any difficulty in breathing with 10 degrees head of bed elevation. Denies any alcohol abuse or smoking. Does not remember when he had a last EGD and colonoscopy because it has been many years but was reported normal at that time. Blood work in the ER showed a white count 7.4, hemoglobin of 8.4 with a baseline hemoglobin of 15.3 in December 2021, creatinine 1.3, BUN of 38, AST/ALT of 31/19. Rectal examination done in the ER positive for occult blood. Review of Systems General: Reports: 10 or more systems reviewed and unremarkable except in HPI and below Const: Denies: fever(s), chills, body aches, change in appetite, change in weight, malaise, night sweats, diaphoresis, change in sleep pattern, daytime sleepiness or snoring Eyes: Denies: change in vision, blurry vision, photophobia, eye discomfort or eye discharge ENMT: Denies: throat pain, enlarged tonsils, hoarseness, mouth pain, oral sores, dry mouth, tinnitus, nasal congestion or post nasal drip Card: Denies: chest pain, palpitations, irregular heart rhythm, edema, swelling of feet/ankles, lightheadedness, syncope, pre-syncope, dyspnea on exertion, orthopnea, leg pain with exertion or acrocyanosis Resp: Denies: dyspnea, productive cough, non-productive cough, wheezing, stridor, pain on inspiration, change in phlegm color, hemoptysis or chest congestion GI: Denies: abdominal pain, nausea, vomiting, hematemesis, coffee ground emesis, dysphagia, heartburn, diarrhea, constipation, bloating, GI cramping, change in bowel habits, pain on defecation, hematochezia or melena : Denies: flank pain, difficulty urinating, dysuria, urinary frequency, urinary urgency, urinary hesitancy, urinary dribbling, difficulty starting urination, change in urine stream, nocturia or hematuria Musc: Denies: neck pain, back pain, extremity pain, joint pain, joint swelling, joint redness, joint stiffness or limited range of motion Neuro: Denies: headache(s), numbness in extremities, weakness in extremities, sensory changes, lack of coordination, difficulty walking, frequent falls, dizziness, vertigo, confusion, Slurred speech present, difficulty communicating thoughts or seizure-like activity Psych: Denies: anxiety, depression, mood swings, panic attacks, hopelessness or irritability Endo: Denies: polyuria, polydipsia, tired all the time, cold intolerance, excessive sweating, flushing or heat intolerance Amado/Lymph: Denies: easy bruising or easy bleeding All/Imm: Denies: tongue swelling, facial swelling or acute wheezing Medications/Allergies Home Medications Medication Instructions Recorded Confirmed Last Taken Type aspirin 325 mg tablet 325 mg PO DAILY 11/19/19 08/31/22 08/31/22 History gabapentin 100 mg capsule 100 mg PO BID pain #60 caps 03/17/20 08/31/22 08/30/22 Rx nitroglycerin 0.4 mg sublingual 0.4 mg sublingual Q5M PRN Chest 03/17/20 08/31/22 Unknown History tablet Pain prednisone 20 mg tablet See Rx Instructions .Route .COMPLEX 01/08/22 08/31/22 1 Week Ago History ~08/24/22 oxycodone-acetaminophen 5 mg-325 1 tab PO Q6H PRN pain #16 tabs 08/25/22 08/31/22 08/30/22 Rx mg tablet (Percocet) Allergies Allergy/AdvReac Type Severity Reaction Status Date / Time No Known Allergies Allergy Verified 08/31/22 14:30 PFSH Acute PFSH: Medical History (Updated 08/31/22 @ 17:25 by Cruz Reagan MD) CVA (cerebral vascular accident) Diabetes Diastolic dysfunction Dyslipidemia GI bleed HTN (hypertension) Pain management contract agreement Sleep apnea Surgical History (Updated 08/31/22 @ 17:25 by Cruz Reagan MD) S/P appendectomy Family History Father Stroke Mother CHF (congestive heart failure) Social History Smoking and tobacco status: former smoker Second hand smoke exposure: No Alcohol intake: current Alcohol intake frequency: 0-2 Drinks per Day Alcohol type: hard liquor Household members: spouse Marital status: service: No Current occupational status: retired Vitals/I&O/Wt Last Vital Signs Temp 97.4 F L 08/31/22 14:20 Pulse 82 08/31/22 16:35 Resp 16 08/31/22 16:35 BP 130/73 08/31/22 16:35 Pulse Ox 99 08/31/22 16:35 O2 Del Method 08/31/22 16:35 08/31/22 08/31/22 08/31/22 06:59 14:59 22:59 Intake Total 1000 / 1000 Balance 1000 / 1000 Weight last 48 hrs Weight 90.718 kg Physical Exam Narrative: General: Acute distress because of back pain, AO x3, pallor present HEENT: PERRLA, pupils bilaterally equal and reactive Chest: Normal vesicular breath sounds, no added sounds, equal good air entry bilaterally CVS: S1-S2 irregularly irregular, no murmurs, no tachycardia, no gallops, no rubs Abdomen: Soft, nontender, no organomegaly, bowel sounds present Neuro: No focal deficits, no facial deformity, AO x3, power 5/5 in all limbs Data 08/31/22 13:56 08/31/22 13:56 Other Labs: Laboratory Results WBC 7.4 10^3/uL (4.0-10.0) 08/31/22 13:56 RBC 2.71 10^6/uL (4.1-5.3) L 08/31/22 13:56 Hgb 8.4 g/dL (11.7-16.6) L 08/31/22 13:56 Hct 27.1 % (42.0-52.0) L 08/31/22 13:56 MCV 100.0 fl (80-94) H 08/31/22 13:56 MCH 31.0 pg (28.0-34.0) 08/31/22 13:56 MCHC 31.0 g/dL (30.0-36.0) 08/31/22 13:56 RDW 17.4 % (12.1-15.1) H 08/31/22 13:56 Plt Count 220 10^3/cmm (130-400) 08/31/22 13:56 MPV 12.2 fL (7.4-10.4) H 08/31/22 13:56 Neut % (Auto) 51.5 % 08/31/22 13:56 Lymph % (Auto) 29.5 % 08/31/22 13:56 Isabela % (Auto) 15.0 % 08/31/22 13:56 Eos % (Auto) 1.8 % 08/31/22 13:56 Baso % (Auto) 1.4 % 08/31/22 13:56 Neut # (Auto) 3.81 10^3/uL (1.8-7.7) 08/31/22 13:56 Lymph # (Auto) 2.2 10^3/uL (0.8-4.8) 08/31/22 13:56 Isabela # (Auto) 1.1 10^3/uL (0.2-0.9) H 08/31/22 13:56 Eos # (Auto) 0.1 10^3/uL (0.0-0.8) 08/31/22 13:56 Baso # (Auto) 0.1 10^3/uL (0.0-0.1) 08/31/22 13:56 Nucleated RBC % (auto) 0 % 08/31/22 13:56 Nucleated RBCs # 0.0 /100WBC 08/31/22 13:56 Sodium 141 mmol/L (136-145) 08/31/22 13:56 Potassium 4.2 mmol/L (3.5-5.1) 08/31/22 13:56 Chloride 104 mmol/L (98-107) 08/31/22 13:56 Carbon Dioxide 23 mmol/L (22-29) 08/31/22 13:56 Anion Gap 18.2 (5-19) 08/31/22 13:56 BUN 38 mg/dL (8-23) H 08/31/22 13:56 Creatinine 1.3 mg/dL (0.7-1.2) H 08/31/22 13:56 GFR Calculation Not Reportable 08/31/22 13:56 Glucose 117 mg/dL (65-115) H 08/31/22 13:56 Calculated Osmolality 302 mOsm/kg (285-295) H 08/31/22 13:56 Calcium 9.0 mg/dL (8.5-10.5) 08/31/22 13:56 Total Bilirubin 0.3 mg/dL (0.15-1.2) 08/31/22 13:56 AST 31 U/L (0-40) 08/31/22 13:56 ALT 19 U/L (0-41) 08/31/22 13:56 Alkaline Phosphatase 73 U/L (40-130) 08/31/22 13:56 Total Protein 6.3 g/dL (6.6-8.7) L 08/31/22 13:56 Albumin 3.5 g/dL (3.5-5.2) 08/31/22 13:56 Globulin 2.8 g/dL (1.3-4.6) 08/31/22 13:56 A&P Assessment and plan (1) Anemia: (2) GI bleed: (3) Weakness: (4) Dizziness: (5) Fall: Qualifiers: Encounter type: initial encounter Qualified Code(s): W19.XXXA - Unspecified fall, initial encounter (6) Closed compression fracture of L2 vertebra: Qualifiers: Encounter type: initial encounter Qualified Code(s): S32.020A - Wedge compression fracture of second lumbar vertebra, initial encounter for closed fracture (7) Diastolic dysfunction: Slightly dehydrated currently. Watch for fluid overload. (8) HTN (hypertension): Goal blood pressure less than 140/90 mmHg. Hold off on antihypertensives for now. (9) Diabetes: Not on OHA's. Continue to monitor blood sugars per BMP for now. Should have A1c checked nonurgently as an outpatient. (10) Afib: Plan 87-year-old male with past medical history of atrial fibrillation not on anticoagulation, chronic pain management, hypertension presented to the ER because of recurrent fall over last 2 to 3 months leading to L2 compression fracture, dizziness along with on and off black tarry stool more so for last 1 week on chronic ibuprofen for last 1 week found to have new acute onset anemia secondary to GI bleed. Anemia: Secondary GI bleed. Baseline hemoglobin seems to be around 15. Patient dehydrated and hemoglobin is 8 today. Patient complaining of dizziness though is hemodynamically stable. Check orthostatics. Transfuse 2 units PRBC. Target hemoglobin more than 8 and hemodynamic stability IV Protonix 40 mg twice daily. Check iron panel, vitamin B12, folate level. Start on oral iron supplementation. Clear liquid diet. Given symptoms of dizziness, recurrent falls along with hemoglobin dropping from baseline of 15 to around 8 and patient who has been using regular aspirin and NSAIDs requires EGD and colonoscopy to further treat GI bleed. Also discussed that patient might require multiple units of transfusion if he has 1 more episode of GI bleed or hemodynamic instability and unfortunately blood bank is not available at our hospital. More importantly, unfortunately surgeons are not available for next 1 week hence EGD and colonoscopy will not be possible at our hospital which she needs emergently because of above said reasons. Discussed in detail with the patient and patient's family/DPOA at bedside. Patient should be transferred to a different facility for an emergent EGD and colonoscopy for further work-up and management. Family is agreeable. L2 compression fracture: Continue with home dose of Percocet. Hold off on prednisone. Tramadol as needed. Physical therapy. Patient should have orthopedic/spine surgery consultation once more stable for possible T SLO brace. Acute kidney injury: Baseline creatinine around 1. Currently 1.3 with mild uremia most likely in setting of ongoing GI bleed. IV fluids and transfusion for hydration. Monitor BMP daily. Medical reconstruction done for nephrotoxic drugs. Atrial fibrillation: Currently not in rapid ventricular response. Continue to monitor on telemetry. CODE STATUS: Discussed in detail with patient at bedside. Patient's daughter Ms. Rutledge would be the healthcare proxy. Patient does not want any heroic measures for life prolongation. DNR/DNI. SCDs for DVT prophylaxis. IV Protonix will suffice as PUD prophylaxis. Consult Attestations Medical Necessity Statement: Patient requires transfer to a higher center for an emergent EGD and colonoscopy where surgical services are available which are currently not available at our hospital. Diagnoses Anemia D64.9 GI bleed K92.2 Weakness R53.1 Dizziness R42 Fall W19.XXXA Encounter type: initial encounter Closed compression fracture of L2 vertebra S32.020A Encounter type: initial encounter Diastolic dysfunction I51.89 HTN (hypertension) I10 Diabetes E11.9 Afib I48.91
[2022-08-31] MEDS: morphine 4 mg/mL SDV 1 mL IVP (18:00)
[2022-08-31 18:03] LABS: Add Urine Microscopic? NO; Charge for UA Resulting for Rev
[2022-08-31 18:06] LABS: Thyroid Stimulating Hormone 4.03 uIU/mL (0.27-4.20)
[2022-08-31 18:11] LABS: Urine Appearance Clear (CLEAR); Urine Color Yellow (Yellow)
[2022-08-31 18:12] LABS: Bilirubin Urine Neg (Negative); Blood Urine Neg (Negative); Glucose Urine UA Norm (Normal); Ketones Urine 1+ (Negative); Leukocyte Esterase Urine Negative (Negative); Nitrate Urine Negative (Negative); Protein Urine Neg (Negative); Specific Gravity, Urine 1.015 (1.005-1.030); Urobilinogen Urine Neg (Negative); pH Urine 6.5 (5-7)
[2022-08-31 18:14] LABS: Folate Level 9.5 ng/mL (4.5-32.2)
[2022-08-31 18:15] LABS: Iron 16 ug/dL (59-158); Percent Saturation 4.9 % (20-50); Total Iron Binding Capacity 326 mcg/dl; Unsaturated Iron Binding 310 ug/dL (112-347)
[2022-08-31 18:17] LABS: Vitamin B12 > 2000 pg/mL (232-1245)
== END 2022-08-31 19:52 | disposition short-term general hospital (02) ==
PROVIDERS: Student in an Organized Health Care Education/Training Program; Emergency Provider Family Medicine; PCP Physician Assistant
DX: K92.2 Gastrointestinal hemorrhage, unspecified (principal); D64.9 Anemia, unspecified; K92.1 Melena; Z86.73 Personal history of transient ischemic attack (TIA), and cerebral infarction without residual deficits; E11.9 Type 2 diabetes mellitus without complications; E78.5 Hyperlipidemia, unspecified; I10 Essential (primary) hypertension; Z87.891 Personal history of nicotine dependence
CPT/HCPCS: 36415; 80053; 81003; 82607; 82746; 83540; 83550; 84443; 85025; 86850; 86900; 86920; 96361; 96374; 96375; 99285; C9113; J2270; J7030

== ENCOUNTER → 2022-10-28 15:17 | Outpatient (BNVA) | payer MEDICARE, OTHER, SELFPAY | PROVIDERS: PCP Physician Assistant; Referring Provider Physician Assistant; Visit Provider Orthopaedic Surgery | DX: M80.08XA Age-related osteoporosis with current pathological fracture, vertebra(e), initial encounter for fracture (principal); M54.16 Radiculopathy, lumbar region; M48.062 Spinal stenosis, lumbar region with neurogenic claudication | CPT/HCPCS: 72100; 99204 ==

== ENCOUNTER 2022-11-03 11:28 | Outpatient (CLI) | payer MEDICARE, OTHER, SELFPAY ==
--- NOTE | 2022-11-03 11:30 | MR_ITS ---
WS: [id number] MRI LUMBAR SPINE NONCONTRAST HISTORY: compression fractures COMPARISON: 12/16/2009 and radiographs 10/28/2022 TECHNIQUE: Sagittal and axial multisequence imaging is submitted. Acute compression fractures are identified at L2 and L4. L2 fracture is biconcave with 2 mm retropuls ion of the posterior superior endplate. There is edema throughout a majority of the L2 vertebral body with a small amount of edema extending into the RIGHT pedicle. Mild compression involving the superi or endplate of L4 with no significant retropulsion. Mild disc space narrowing at L5-S1. Conus terminates normally at L1. L1-L2: Mild annular disc bulging and mild posterior retropulsion of the posterior endplate of L2. The re is mild central and bilateral subarticular recess and RIGHT foraminal stenosis. Most significant e ncroachment upon the RIGHT traversing L2 nerve root. L2-L3: Mild disc bulging and facet arthritis. Mild central and RIGHT foraminal stenosis. Mild subarti cular recess stenosis, RIGHT greater than LEFT. L3-L4: Mild annular disc bulging with osteophytic ridging, moderate ligamentum flavum and facet arthr itis. Moderate to severe central with bilateral subarticular recess stenosis and mild foraminal steno sis. L4-L5: Marked annular disc bulging with osteophytic ridging. Severe ligamentum flavum and facet arthr itis. Fluid in the facet joints, RIGHT greater than LEFT. Severe central, bilateral subarticular rece ss and moderate foraminal stenosis. L5-S1: Diffuse annular disc bulging with a LEFT foraminal disc protrusion. Severe ligamentum flavum a nd facet arthritis. Severe central, bilateral subarticular recess and LEFT foraminal stenosis. Mild R IGHT foraminal stenosis. There is fluid in the facet joints. There is significant encroachment upon t he central canal, bilateral S1 nerve roots and the exiting LEFT L5 nerve root. MR/MR lumbar spine wo con* [id number] IMPRESSION: 1. Acute biconcave 20% L2 vertebral body fracture with 2 mm retropulsion of po sterior superior endplate. 2. Minimal, 10%% compression fracture superior endplate of L4. No retropulsion . 3. L1-2: Mild central, bilateral subarticular recess and RIGHT foraminal steno sis. 4. L2-3: Mild central, bilateral subarticular recess and RIGHT foraminal steno sis. 5. L3-4: Moderate to severe central with bilateral subarticular recess and mil d foraminal stenosis. 6. L4-5: Severe central, bilateral subarticular recess and moderate foraminal stenosis. 7. L5-S1: Severe central, bilateral subarticular recess and LEFT foraminal denise nosis. Mild RIGHT foraminal stenosis. 8. LEFT foraminal disc protrusion at L5-S1 contributing to the stenosis.
== END 2022-11-03 11:29 | disposition home or self-care (01) ==
LOC: RAD 11:35
PROVIDERS: PCP Physician Assistant; Visit Provider Orthopaedic Surgery
DX: S32.000A Wedge compression fracture of unspecified lumbar vertebra, initial encounter for closed fracture (principal); M48.07 Spinal stenosis, lumbosacral region; M51.27 Other intervertebral disc displacement, lumbosacral region; X58.XXXA Exposure to other specified factors, initial encounter
CPT/HCPCS: 72148

== ENCOUNTER 2022-11-10 11:28 | Outpatient (CLI) | payer MEDICARE, OTHER, SELFPAY ==
[2022-11-10 11:51] LABS: Basophils # 0.1 10^3/uL (0.0-0.1); Basophils % 2.2 %; Eosinophils # 0.2 10^3/uL (0.0-0.8); Hematocrit 32.8 % (42.0-52.0); Hemoglobin 9.9 g/dL (11.7-16.6); Lymphocytes # 1.5 10^3/uL (0.8-4.8); Lymphocytes % 40.9 %; Mean Corpuscular HGB Conc 30.2 g/dL (30.0-36.0); Mean Corpuscular Hemoglobin 23.5 pg (28.0-34.0); Mean Corpuscular Volume 77.9 fl (80-94); Monocytes # 0.6 10^3/uL (0.2-0.9); Monocytes % 16.5 %; Neutrophils # 1.26 10^3/uL (1.8-7.7); Neutrophils % 34.1 %; Nucleated Red Blood Cells % 0 %; Red Blood Count 4.21 10^6/uL (4.1-5.3); Red Cell Distribution Width 22.4 % (12.1-15.1); White Blood Count 3.7 10^3/uL (4.0-10.0)
[2022-11-10 12:01] LABS: INR 1.05 (0.8-1.2)
[2022-11-10 12:11] LABS: Alanine Aminotransferase 9 U/L (0-41); Albumin Level 3.3 g/dL (3.5-5.2); Alkaline Phosphatase 68 U/L (40-130); Anion Gap 13.5 (5-19); Aspartate Amino Transferase 17 U/L (0-40); Blood Urea Nitrogen 14 mg/dL (8-23); Calcium 8.3 mg/dL (8.5-10.5); Carbon Dioxide 24 mmol/L (22-29); Chloride 105 mmol/L (98-107); Globulin 2.7 g/dL (1.3-4.6); Glucose 89 mg/dL (65-115); Osmolality Calculated 286 mOsm/kg (285-295); Potassium 4.5 mmol/L (3.5-5.1); Sodium 138 mmol/L (136-145); Total Bilirubin 0.3 mg/dL (0.15-1.2)
[2022-11-10 13:28] LABS: Platelet Count 1 10^3/cmm (130-400)
[2022-11-10 13:31] LABS: Slide Review Slide Review Perform
== END 2022-11-10 11:29 | disposition home or self-care (01) ==
LOC: LAB 11:33
PROVIDERS: PCP Physician Assistant; Visit Provider Physician Assistant
DX: I48.0 Paroxysmal atrial fibrillation (principal)
CPT/HCPCS: 80053; 85025; 85610

== ENCOUNTER 2022-11-10 14:42 | Inpatient (IN) | payer MEDICARE, OTHER, SELFPAY ==
[2022-11-10 14:56] VITALS: BP 83/59; PULSE 67; RESP 16; TEMP 36.6; O2SAT 99; BMI 28.8
--- NOTE | 2022-11-10 15:59 | W.ED.RECABL ---
HPI - Recheck/Abnormal Lab/Rx General: Chief Complaint: Recheck/Abnormal Lab/Rx Stated Complaint: abnormal Labs Time Seen by Provider: 11/10/22 15:17 Source: patient Mode of arrival: ambulatory Limitations: no limitations History of Present Illness: Patient was brought to the emergency department by family members. Allegedly he has a low platelet count and for that reason was referred to the emergency department. Patient denies any constitutional complaints. He states he was at the eye doctor this morning and then wound up coming to the emergency department. He denies any bleeding issues to include dark tarry stools, blood in his stools, blood in his urine etc. He denies any falls or injuries. States he takes some medications some of which she takes on an as-needed basis. He denies any chest pain or shortness of breath and denies any history of cardiovascular problems. Review of Systems Const: Denies: fever(s) or chills Eyes: Denies: change in vision ENMT: Denies: throat pain, odynophagia, nasal discharge or nasal congestion Card: Denies: chest pain, irregular heart rhythm, edema or lightheadedness Resp: Denies: dyspnea, productive cough or non-productive cough GI: Denies: abdominal pain, nausea or vomiting : Denies: difficulty urinating or dysuria Musc: Denies: neck pain, back pain, extremity pain or extremity swelling Skin/Breast: Reports: rash and pruritus Neuro: Denies: headache(s), numbness in extremities or weakness in extremities Amado/Lymph: Reports: easy bruising and petechiae PFS ED PFSH: Medical History CVA (cerebral vascular accident) Diabetes Diastolic dysfunction Dyslipidemia GI bleed HTN (hypertension) Pain management contract agreement Sleep apnea Surgical History S/P appendectomy Family History Father Stroke Mother CHF (congestive heart failure) Social History Smoking and tobacco status: former smoker Second hand smoke exposure: No Alcohol intake: current Alcohol intake frequency: 0-2 Drinks per Day Alcohol type: hard liquor Substance/Drug Use: never Household members: spouse Marital status: service: No Current occupational status: retired Physical Exam Narrative: EXAM NARRATIVE: Elderly gentleman is alert answers questions in a goal-directed fashion. Appears to be comfortable and in no acute distress. Const: COMMON NORMALS: no acute distress, average body habitus and alert GENERAL APPEARANCE: cooperative and comfortable HENMT: COMMON NORMALS: normocephalic, atraumatic, Normal nasal mucous membranes and turbinates present and moist oral mucous membranes HEAD & SCALP: normocephalic and atraumatic NOSE: Normal nasal mucous membranes and turbinates present and Other nasal findings present (As a few scattered petechiae in the palate) Eye: COMMON NORMALS: Equal, round and reactive pupils present, conjunctivae normal and no scleral icterus CONJUNCTIVA: Yes conjunctivae normal PUPIL: Yes Equal, round and reactive pupils present Neck/C-Spine: COMMON NORMALS: full ROM, no lymphadenopathy and No carotid bruits Chest: COMMONS NORMALS: normal inspection of the chest Resp: COMMON NORMALS: normal respiratory effort, No use of accessory muscles and clear to auscultation bilaterally AUSCULTATION: clear to auscultation bilaterally Cardio: COMMON NORMALS: regular rate, regular rhythm, No murmurs present (Cardio) and Peripheral pulses 2+ throughout RATE: regular rate RHYTHM: regular rhythm PERIPHERAL PULSES: Peripheral pulses 2+ throughout GI: COMMON NORMALS: Normal to inspection, nondistended, normoactive bowel sounds present, Soft to palpation, non-tender and no masses PALPATION: Yes Soft to palpation : COMMON NORMALS: Yes no CVA tenderness BLADDER/KIDNEY EXAM: Yes no CVA tenderness Back/Pelvis: COMMON NORMALS: no CVA tenderness, thoracic and lumbar spine normal to inspection, no thoracic nor lumbar tenderness, thoraco-lumbar ROM normal and straight leg raise negative bilaterally Extremity: COMMON NORMALS: full ROM, capillary refill normal, no joint enlargement, no clubbing, cyanosis or edema and no calf tenderness Neuro: COMMON NORMALS: moves all extremities, no focal motor deficits and no sensory deficits noted SENSORIUM/ORIENTATION: Yes alert CRANIAL NERVES: Yes CN normal except as noted Psych: COMMON NORMALS: mental status grossly normal Skin: COMMON NORMALS: no wounds, turgor normal and no jaundice GENERAL SKIN EXAM: turgor normal and petechiae (Anterior shins bilaterally) Course Consultations: Consultation #1: Discussed with Dr. Salinas hematology oncology who recommended admission for dexamethasone, IgG and will be available for consultation Time: 16:14 Consultation #2: Discussed with the attending hospitalist who agreed to admit patient. He requested a CT abdomen pelvis to ensure there is no evidence of retroperitoneal hematoma etc. Time: 16:14 Vital Signs: Vital signs: Vital Signs Temperature 97.9 F 11/10/22 14:56 Pulse Rate 72 11/10/22 17:02 Respiratory Rate 16 11/10/22 14:56 Blood Pressure 111/55 11/10/22 17:02 Pulse Oximetry 97 11/10/22 17:02 Oxygen Delivery Me thod Room Air 11/10/22 17:02 MDM - Recheck/Abnormal Lab/Rx Medical Decision Making Patient sent to the emergency department because of thrombocytopenia. No prior history of same recent platelet count was greater than 220,000. No new medications but does take nonsteroidals as well as aspirin on a regular basis. He has not had any symptoms at this time to include spontaneous bleeding etc. Evaluation today revealed him to be clinically alert with normal vital signs. He did have a significant Dipak depressed platelet count of 1000. He also had associated clinical findings of palatal and lower extremity petechiae. He had associated mild anemia as well as low indices. Current presentation strongly suggest ITP. Consultation with hematology was completed who recommended dexamethasone and IgG. Patient will be admitted for such therapy and observation. No evidence at this time of occult bleeding. Medical Records I reviewed the patient's medical records. Prior platelet count in August of this year was 220,000. Lab Data I reviewed the patient's lab results. Laboratories obtained today reveal thrombocytopenia as well as anemia comprehensive metabolic profile is unremarkable calcium is slightly low at 8.3 mg/dL. 11/10/22 15:32 Radiology Impressions Abdomen/Pelvis CT 11/10/22 16:18 IMPRESSION: 1. Negative for retroperitoneal hemorrhage as in clinical indication. 2. Hepatic steatosis. 3. Left kidney cyst, negative follow up. 4. Diverticulosis without diverticulitis. 5. L2 vertebral body compression fracture without retropulsion of bony fragments, new compared to prior exam, age indeterminate. COMMENTS: Consistent with the [employer]'s Incidental Findings Committee white paper (J Am Jeannette Radiol 2018): Any incidental renal lesion less than 1 cm or classified as too small to characterize, or any incidental cystic renal lesion characterized as simple-appearing, is likely benign. No follow-up imaging is recommended for these lesions per consensus recommendations based on imaging criteria. Laboratory Results WBC 4.3 10^3/uL (4.0-10.0) 11/10/22 15:32 RBC 4.27 10^6/uL (4.1-5.3) 11/10/22 15:32 Hgb 10.1 g/dL (11.7-16.6) L 11/10/22 15:32 Hct 34.1 % (42.0-52.0) L 11/10/22 15:32 MCV 79.9 fl (80-94) L 11/10/22 15: MCH 23.7 pg (28.0-34.0) L 11/10/22 15: MCHC 29.6 g/dL (30.0-36.0) L 11/10/22 15:32 RDW 22.5 % (12.1-15.1) H 11/10/22 15:32 Plt Count 3 10^3/cmm (130-400) L* D 11/10/22 15:32 MPV Not Reportable 11/10/22 15:32 Total Counted 100 (0-100) 11/10/22 15:32 Atypical Lymphs % 5.0 % (0-5) 11/10/22 15:32 Absolute Neutrophils 2.1 10^3/cmm (1.4-6.5) 11/10/22 15:32 Segmented Neutrophils 46 % 11/10/22 15:32 Abs Segm Neuts (Man) 2.0 10/cmm (1.6-7.1) 11/10/22 15:32 Band Neutrophils 3.0 % 11/10/22 15:32 Abs Band Neuts (Man) 0.1 10^3/cmm (0.0-1.2) 11/10/22 15:32 Absolute Lymphocytes 1.7 10^3/cmm (1.2-3.4) 11/10/22 15:32 Lymphocytes (Manual) 35 % 11/10/22 15:32 Monocytes (Manual) 4.0 % 11/10/22 15:32 Absolute Monocytes 0.2 10^3/cmm (0.1-0.6) 11/10/22 15:32 Eosinophils (Manual) 5 % 11/10/22 15:32 Absolute Eosinophils 0.2 10^3/cmm (0.0-0.7) 11/10/22 15:32 Basophils (Manual) 1.0 % 11/10/22 15:32 Absolute Basophils 0.0 10^3/cmm (0.0-0.2) 11/10/22 15:32 Metamyelocytes 1.0 % 11/10/22 15:32 Platelet Estimate Decreased (Normal) 11/10/22 15:32 Polychromasia 1+ H 11/10/22 15:32 Hypochromasia 3+ H 11/10/22 15:32 Anisocytosis 2+ H 11/10/22 15:32 Schistocytes 1+ H 11/10/22 15:32 Iron 60 ug/dL (59-158) 11/10/22 15:32 TIBC 285 mcg/dl 11/10/22 15:32 % Saturation 21.0 % (20-50) 11/10/22 15:32 Unsat Iron Binding 225 ug/dL (112-347) 11/10/22 15:32 Discharge Plan Discharge Patient Disposition: Admitted As Inpatient Clinical Impression: Acute ITP Condition: Stable Coding Level of Care Code ED Senior Javascript Engineer for Christos Martinez
--- NOTE | 2022-11-10 16:09 | PC.PHAR ---
pt states he takes care of his own medications-pt states he is unsure if he is taking celebrex 200mg daily 10/25/22 90d/s or iron 325mg daily 10/25/22 60d/s-pt states he takes prednisone 20mg as directed as needed rx filled 10/25/22 #10-ultram 50mg q4-6h prn filled 11/10/22 but hasnt been picked up from the pharmacy-pt states takes norco 7.5-325mg prn-rx filled 07/20/22 12d/s 1 tab po tid prn-pt also had a percocet 5-325mg q6h prn filled 08/25/22 but states he no longer has any of that-notes are made in the pharmacy comments
--- NOTE | 2022-11-10 16:18 | CTR_ITS ---
PROCEDURE INFORMATION: Exam: CT Abdomen And Pelvis With Contrast Exam date and time: 11/10/2022 4:47 PM Age: 87 years old Clinical indication: Other: Abnormal labs not mentioned for scan; Additional info: Rule out retroparitoneal hemorrhage TECHNIQUE: Imaging protocol: Computed tomography of the abdomen and pelvis with contrast. Radiation optimization: All CT scans at this facility use at least one of these dose optimization techniques: automated exposure control; mA and/or kV adjustment per patient size (includes targeted exams where dose is matched to clinical indication); or iterative reconstruction. Contrast material: OMNI 350; Contrast volume: 100 ml; Contrast route: INTRAVENOUS (IV); REPORTING DATA: Count of CT and Cardiac NM exams in prior 12 months: This patient has received [address] and 0 known cardiac nuclear medicine studies in the 12 months prior to the current study. COMPARISON: CT abdomen pelvis w con* [id number] 01/08/2022 1:45 PM RADIATION DOSE METRICS: Total DLP (mGy-cm): 670 FINDINGS: Liver: Hepatic steatosis. Gallbladder and bile ducts: Normal. No calcified stones. No ductal dilation. Pancreas: Normal. No ductal dilation. Spleen: Normal. No splenomegaly. Adrenal glands: Normal. No mass. Kidneys and ureters: Left kidney cyst, negative follow up. Stomach and bowel: Diverticulosis without diverticulitis. Appendix: No evidence of appendicitis. Intraperitoneal space: Unremarkable. No free air. No significant fluid collection. Vasculature: Unremarkable. No abdominal aortic aneurysm. Lymph nodes: Unremarkable. No enlarged lymph nodes. Urinary bladder: Unremarkable as visualized. Reproductive: Unremarkable as visualized. Bones/joints: L2 vertebral body compression fracture without retropulsion of bony fragments, new compared to prior exam, age indeterminate. Soft tissues: Unremarkable. CT/CT abdomen pelvis w con* [id number] IMPRESSION: 1. Negative for retroperitoneal hemorrhage as in clinical indication. 2. Hepatic steatosis. 3. Left kidney cyst, negative follow up. 4. Diverticulosis without diverticulitis. 5. L2 vertebral body compression fracture without retropulsion of bony fragments, new compared to prior exam, age indeterminate. COMMENTS: Consistent with the [employer]'s Incidental Findings Committee white paper (J Am Jeannette Radiol 2018): Any incidental renal lesion less than 1 cm or classified as too small to characterize, or any incidental cystic renal lesion characterized as simple-appearing, is likely benign. No follow-up imaging is recommended for these lesions per consensus recommendations based on imaging criteria.
[2022-11-10 16:40] LABS: Hematocrit 34.1 % (42.0-52.0); Hemoglobin 10.1 g/dL (11.7-16.6); Mean Corpuscular HGB Conc 29.6 g/dL (30.0-36.0); Mean Corpuscular Hemoglobin 23.7 pg (28.0-34.0); Mean Corpuscular Volume 79.9 fl (80-94); Red Blood Count 4.27 10^6/uL (4.1-5.3); Red Cell Distribution Width 22.5 % (12.1-15.1); White Blood Count 4.3 10^3/uL (4.0-10.0)
[2022-11-10] MEDS: iohexol 350 mg/mL 500 mL Btl (per mL) IV (16:56)
[2022-11-10 17:01] LABS: Iron 60 ug/dL (59-158); Total Iron Binding Capacity 285 mcg/dl; Unsaturated Iron Binding 225 ug/dL (112-347)
[2022-11-10 17:02] VITALS: BP 111/55; PULSE 72; O2SAT 97
[2022-11-10] MEDS: lactated ringers 1,000 ML 125 ML IV (17:09)
--- NOTE | 2022-11-10 17:25 | P.HP_ITS ---
Providers/Chief Complaint Primary Care Provider: Jeni Tai Chief Complaint: abnormal Labs History of Present Illness Very pleasant 87-year-old gentleman with history of chronic back pain, CVA, other comorbidities was brought in for evaluation due to abnormal lab with a very low platelet count of 1000. He has noticed having petechiae on his lower extremities. Denies noticing any bleeding. He takes aspirin due to history of stroke. Takes Tylenol but is noted to have celecoxib on his home medications as well. He does not remember whether he takes it. He states that he lives alone with 2 cats. He is okay with staying in the hospital for treatment but does not want anything to be involved. He states that he is very old. He states that he certainly would not want CPR in case of cardiopulmonary arrest. He would be okay with transient intubation in case of respiratory arrest alone. He would not otherwise want any extreme measures. Nature has a way of taking care of things . He states he otherwise feels he has been doing fairly well. But has been having difficulty with his back pain and walking. Has been needing to use his walker at all times. Denies any falls or injury. Review of Systems Const: Denies: fever(s), chills, body aches or malaise Eyes: Denies: change in vision, eye discomfort or eye redness ENMT: Denies: throat pain, oral sores or ear or mastoid pain Card: Denies: chest pain, edema, pre-syncope or dyspnea on exertion Resp: Denies: dyspnea, productive cough, change in phlegm color or hemoptysis GI: Denies: abdominal pain, nausea, vomiting, diarrhea, constipation, hematochezia or melena : Denies: flank pain, difficulty urinating, urinary frequency or hematuria Musc: Reports: back pain (Chronic); Denies: joint swelling or joint redness Skin/Breast: Reports: other (Petechiae); Denies: rash or new lesions Neuro: Denies: headache(s), numbness in extremities, weakness in extremities, dizziness, confusion or seizure-like activity Endo: Denies: polyuria or polydipsia Amado/Lymph: Denies: easy bleeding or tender lymph nodes All/Imm: Denies: urticaria or tongue swelling Medications/Allergies Home Medications Medication Instructions Recorded Confirmed Last Taken Type nitroglycerin 0.4 mg sublingual 0.4 mg sublingual Q5M PRN Chest 03/17/20 11/10/22 Unknown History tablet Pain prednisone 20 mg tablet See Rx Instructions .Route .COMPLEX 01/08/22 11/10/22 1 Week Ago History ~08/24/22 aspirin 81 mg tablet,delayed 81 mg PO QAM 11/10/22 11/10/22 11/10/22 History release celecoxib 200 mg capsule (Celebrex) 200 mg PO DAILY 11/10/22 11/10/22 Unknown Hi story ferrous sulfate 325 mg (65 mg 325 mg PO DAILY 11/10/22 11/10/22 Unknown History iron) tablet gabapentin 300 mg capsule 300 - 600 mg PO QAM 11/10/22 11/10/22 11/10/22 History hydrocodone 7.5 mg-acetaminophen 1 tab PO TID PRN Pain 11/10/22 11/10/22 Unknown History 325 mg tablet tramadol 50 mg tablet 50 mg PO .q4-6 hrs PRN pain #30 11/10/22 11/10/22 Unknown Rx tabs Allergies Allergy/AdvReac Type Severity Reaction Status Date / Time No Known Allergies Allergy Verified 11/10/22 16:02 PFSH Acute PFSH: Medical History CVA (cerebral vascular accident) Diabetes Diastolic dysfunction Dyslipidemia GI bleed HTN (hypertension) Pain management contract agreement Sleep apnea Surgical History S/P appendectomy Family History Father Stroke Mother CHF (congestive heart failure) Social History Smoking and tobacco status: former smoker Second hand smoke exposure: No Alcohol intake: current Alcohol intake frequency: 0-2 Drinks per Day Alcohol type: hard liquor Substance/Drug Use: never Household members: spouse Marital status: service: No Current occupational status: retired Vitals/I&O/Wt Last Vital Signs Temp 97.9 F 11/10/22 14:56 Pulse 72 11/10/22 17:02 Resp 16 11/10/22 14:56 BP 111/55 11/10/22 17:02 Pulse Ox 97 11/10/22 17:02 O2 Del Method Room Air 11/10/22 17:02 Weight last 48 hrs Weight 86.183 kg Physical Exam Const: COMMON NORMALS: patient oriented x3 and alert GENERAL APPEARANCE: cooperative ORIENTATION/CONSCIOUSNESS: Yes awake HENMT: COMMON NORMALS: oropharynx normal OTHER: Mucosal petechiae, no bleeding Neck/C-Spine: COMMON NORMALS: no JVD Resp: COMMON NORMALS: normal respiratory effort and clear to auscultation bilaterally AUSCULTATION: clear to auscultation bilaterally Cardio: COMMON NORMALS: no JVD, regular rhythm, S1 normal heart sound present, S2 normal heart sound present and No murmurs present (Cardio) RHYTHM: regular rhythm HEART SOUNDS: S1 normal heart sound present and S2 normal heart sound present GI: COMMON NORMALS: Normal to inspection, nondistended, normoactive bowel sounds present, Soft to palpation and non-tender PALPATION: Yes Soft to palpation Extremity: COMMON NORMALS: no joint enlargement and no pedal edema Neuro: COMMON NORMALS: patient oriented x3 and moves all extremities SENSORIUM/ORIENTATION: Yes alert Skin: COMMON NORMALS: no rashes or lesions noted GENERAL SKIN EXAM: no rashes or lesions noted OTHER: Petechiae BL LE Data 11/10/22 15:32 A&P Assessment and plan (1) Severe thrombocytopenia: He has not had any changes in his medications recently. Denies any recent illness. Discussed with ER physician, discussed with hematology. Suspicion most likely for ITP. Additional work-up requesting with LDH, haptoglobin, peripheral smear. Iron panel has been requested as well. Check B12, TSH. Additionally as per recommendation Decadron 40 mg daily, IVIG 1 mg/kg. With Decadron, thrombocytopenia, risk of GI bleeding, also with EtOH consumption. We will additionally start on PPI Protonix 40 mg daily starting today. Monitor b lood counts. Liver parameters noted WNL. Reassess CBC, CMP. Treat and monitor in the hospital due to risk of spontaneous bleeding, risk of severe life-threatening bleeding. Plan Chronic back pain: Hold celecoxib History of stroke: Hold aspirin for now HTN: Monitor blood pressures HLD DM: Glucose noted 89 today. We will hold off on Accu-Cheks due to severity of thrombocytopenia. EtOH consumption: Sometimes up to 2 or 3 martinis in a day. Monitor for withdrawal. Discussed with him reducing EtOH consumption. Attestations Medical Necessity Statement*: Admission of over 2 midnights anticipated for assessment and management of new severe thrombocytopenia. Diagnoses Severe thrombocytopenia D69.6
[2022-11-10 17:30] LABS: Platelet Count 3 10^3/cmm (130-400)
[2022-11-10 17:41] LABS: Absolute Eosinophils 0.2 10^3/cmm (0.0-0.7); Absolute Neutrophil 2.1 10^3/cmm (1.4-6.5); Band Neutrophils Absolute 0.1 10^3/cmm (0.0-1.2); Eosinophils 5 %; Lymphocytes 35 %; Lymphocytes Absolute 1.7 10^3/cmm (1.2-3.4); Monocytes Absolute 0.2 10^3/cmm (0.1-0.6); Platelet Estimate Decreased (Normal); Segmented Neutrophils 46 %; Total Cells Counted 100 (0-100)
[2022-11-10 17:42] LABS: Anisocytosis 2+; Hypochromasia 3+; Polychromasia 1+
[2022-11-10 17:43] LABS: Schistocytes 1+
[2022-11-10 18:30] VITALS: BP 113/72; PULSE 83; O2SAT 93
[2022-11-10] MEDS: pantoprazole DR 40 mg Tablet PO (18:39)
[2022-11-10 19:25] LABS: Lactate Dehydrogenase 208 U/L (135-225); Thyroid Stimulating Hormone 3.61 uIU/mL (0.27-4.20); Vitamin B12 1392 pg/mL (232-1245)
[2022-11-10] MEDS: dexamethasone 4 mg Tablet 40 MG PO (19:26)
[2022-11-10 20:02] VITALS: BP 137/70; PULSE 82; RESP 16; O2SAT 96
[2022-11-10 20:15] VITALS: BP 140/81; PULSE 68; RESP 18; TEMP 36.7; O2SAT 98
[2022-11-10 21:08] LABS: Glucose Point of Care 97 mg/dL (70-110)
[2022-11-10 21:23] LABS: LAB Peripheral Smear Sent for Review
[2022-11-11] VITALS: BP 149/93; PULSE 100; RESP 18; TEMP 37.1; O2SAT 98
[2022-11-11 03:33] VITALS: BP 154/88; PULSE 85; RESP 18; TEMP 36.4; O2SAT 97
[2022-11-11 05:08] LABS: Basophils % 0.9 %; Hematocrit 32.6 % (42.0-52.0); Hemoglobin 9.4 g/dL (11.7-16.6); Lymphocytes # 0.5 10^3/uL (0.8-4.8); Lymphocytes % 43.8 %; Mean Corpuscular HGB Conc 28.8 g/dL (30.0-36.0); Mean Corpuscular Hemoglobin 23.7 pg (28.0-34.0); Mean Corpuscular Volume 82.3 fl (80-94); Monocytes % 3.6 %; Neutrophils % 50.8 %; Nucleated Red Blood Cells % 0 %; Red Blood Count 3.96 10^6/uL (4.1-5.3); Red Cell Distribution Width 22.8 % (12.1-15.1); White Blood Count 1.1 10^3/uL (4.0-10.0)
[2022-11-11 05:27] LABS: Slide Review Slide Review Perform
[2022-11-11 05:29] LABS: Alanine Aminotransferase 9 U/L (0-41); Albumin Level 2.8 g/dL (3.5-5.2); Alkaline Phosphatase 63 U/L (40-130); Anion Gap 14.6 (5-19); Aspartate Amino Transferase 16 U/L (0-40); Blood Urea Nitrogen 16 mg/dL (8-23); Calcium 8.1 mg/dL (8.5-10.5); Carbon Dioxide 21 mmol/L (22-29); Chloride 100 mmol/L (98-107); Globulin 4.8 g/dL (1.3-4.6); Glucose 156 mg/dL (65-115); Osmolality Calculated 276 mOsm/kg (285-295); Potassium 4.6 mmol/L (3.5-5.1); Sodium 131 mmol/L (136-145); Total Bilirubin 0.4 mg/dL (0.15-1.2); Total Protein 7.6 g/dL (6.6-8.7)
[2022-11-11 05:33] LABS: Platelet Count 8 10^3/cmm (130-400)
[2022-11-11 05:34] LABS: Neutrophils # 0.57 10^3/uL (1.8-7.7)
[2022-11-11] MEDS: gabapentin 300 mg Capsule PO (06:21)
[2022-11-11 08:00] VITALS: BP 172/94; PULSE 87; RESP 18; TEMP 36.4; O2SAT 98
--- NOTE | 2022-11-11 08:08 | PC.NURSE ---
Patient's daughter, Maty Oneal, was inquiring about his belongings, including a money clip, keys, and chewing tobacco. I pulled these belongings from the [employer] and gave to Maty. She removed items from the bag and counted all money, checked keys, and tobacco and stated everything was there that should have been. She is taking these items home at this time.
[2022-11-11] MEDS: dexamethasone 4 mg Tablet 40 MG PO (10:48)
--- NOTE | 2022-11-11 10:48 | PC.CHAP ---
Pastoral Care Encounter/Spiritual Assessment Type of Contact [] Declined senior civil engineer visit [] Patient/Family/Request visit [] Outpatient visit [] Follow-up visit [] Physician referral [] Code/Alert [] Routine visit [] Staff referral [] Actively dying [] Patient sleeping [] Family support [] [] Out of room [] Palliative care [] [] Receiving care in room [] Pre-surgical visit [] Trauma [] Long length of stay [] ICU visit [x] Other: Isolation Relational/Emotional Strength [] Patient feels connected with others/family/visitors/staff [] Distress [] Loneliness/isolation [] Abandonment Spirituality of Patient [] Person of Dulce [place] [] Attends U[place]din of their Dulce Maria [] Believes in Prayer [] Reads Bible or Mosque materials [] There are Spiritual issues to be addressed Machine [employer]ander Interventions [] Prayer [] Active listening [] Non-anxious presence [] Spiritual/emotional support [] Crisis/trauma care [] Spiritual counseling [] Bereavement support [] Provided bereavement packet [] Provided Bible/devotional materials [] Provided toy/stuffed animal, coloring book to patient or family member [] Provided Communion [] Anointing/[place] [] Salvation [] Completed spiritual assessment [] Other: Impact on Illness or Injury [] Angry [] Fearful [] Anxious [] Often cries [] Exhaustion [] Unable to work [] Unable to attend faith [] Unable to walk/stand [] Unable to read [] Unable to drive [] Unable to eat/drink [] Unable to sleep [] Unable to be with family [] Patient intubated [] Other: Summary Isolation Time spent with patient 5 mins
[2022-11-11] MEDS: ferrous sulfate EC 325 mg Tablet PO (10:49)
[2022-11-11] MEDS: pantoprazole DR 40 mg Tablet PO (10:49)
[2022-11-11] MEDS: acetaminophen 325 mg Tablet 650 MG PO (10:53)
[2022-11-11] MEDS: TRAMadol 50 mg Tablet PO (10:53)
[2022-11-11 12:00] VITALS: BP 129/78; PULSE 80; RESP 18; O2SAT 94
--- NOTE | 2022-11-11 15:37 | PM.PN ---
Subjective Subjective: Denies any bleeding. Denies any additional changes. Minimal headache if any. No nausea vomiting. No diarrhea. States has been having a little bit of urinary incontinence which is not new. Vitals/I&O/Wt Last Vital Signs Temp 97.5 F L 11/11/22 08:00 Pulse 80 11/11/22 12:00 Resp 18 11/11/22 12:00 BP 129/78 11/11/22 12:00 Pulse Ox 94 11/11/22 12:00 O2 Del Method Room Air 11/11/22 12:00 11/11/22 11/11/22 11/11/22 06:59 14:59 22:59 Intake Total 1000 / 1120 1160 / 1160 Output Total 400 / 400 600 / 600 Balance 600 / 720 560 / 560 Weight last 48 hrs Weight 86.183 kg Physical Exam Const: COMMON NORMALS: patient oriented x3 and alert GENERAL APPEARANCE: cooperative ORIENTATION/CONSCIOUSNESS: Yes awake HENMT: COMMON NORMALS: oropharynx normal OTHER: Mucosal petechiae, no bleeding Neck/C-Spine: COMMON NORMALS: no JVD Resp: COMMON NORMALS: normal respiratory effort and clear to auscultation bilaterally AUSCULTATION: clear to auscultation bilaterally Cardio: COMMON NORMALS: no JVD, regular rhythm, S1 normal heart sound present, S2 normal heart sound present and No murmurs present (Cardio) RHYTHM: regular rhythm HEART SOUNDS: S1 normal heart sound present and S2 normal heart sound present GI: COMMON NORMALS: Normal to inspection, nondistended, normoactive bowel sounds present, Soft to palpation and non-tender PALPATION: Yes Soft to palpation Extremity: COMMON NORMALS: no joint enlargement and no pedal edema Neuro: COMMON NORMALS: patient oriented x3 and moves all extremities SENSORIUM/ORIENTATION: Yes alert Skin: COMMON NORMALS: no rashes or lesions noted GENERAL SKIN EXAM: no rashes or lesions noted OTHER: Petechiae BL LE Data 11/11/22 04:56 11/11/22 04:56 A&P Assessment and plan (1) Pancytopenia: Today with pancytopenia, significant neutropenia, WBC 1.1, neutrophils 570. Hemoglobin 9.4. Placed on reverse isolation, neutropenic precautions. Discussed with him. He knows to alert us in case of any changes in his symptoms. Discussed with hematology. Unclear whether this may be secondary to IVIG versus possibly additional underlying condition. Per discussion with pathology RDW is elevated. Some nucleated RBC reported on peripheral smear. Requesting peripheral smear to also to be sent to hematology. Noted LDH 208. Without iron deficiency. He does also drink alcohol he had noted 2-3 drinks previously, royal, but per report it may be 4-5 drinks sometimes I am hearing today, and so may be more than he reports. Appreciate additional hematology evaluation and recommendations. TSH normal. B12 not low. Follow-up CBC requested. (2) Severe thrombocytopenia: Platelets discussed with him noted slightly better today at 8000. As per discussion with hematology continue Decadron, additional dose IVIG. With Decadron, thrombocytopenia, risk of GI bleeding, also with EtOH consumption. PPI - Protonix 40 mg daily starting today. Monitor blood counts. Liver parameters noted WNL. Reassess CBC, CMP. Treat and monitor in the hospital due to risk of spontaneous bleeding, risk of severe life-threatening bleeding. Plan Chronic back pain: Hold celecoxib History of stroke: Hold aspirin for now HTN: Monitor blood pressures HLD DM: Glucose close to target. We will hold off on Accu-Cheks due to severity of thrombocytopenia. EtOH consumption: Possibly more than initially reported. Requesting CIWA protocol with Ativan, monitor for withdrawal. Denies history of DVT. Discussed with him reducing EtOH consumption. Follow-up CMP. Check magnesium. Attestations Medical Necessity Statement*: Admission for management of new severe thrombocytopenia, pancytopenia. Diagnoses Pancytopenia D61.818 Severe thrombocytopenia D69.6
[2022-11-11 16:00] VITALS: BP 130/76; PULSE 90; RESP 18; TEMP 36.3; O2SAT 95
--- NOTE | 2022-11-11 17:43 | P.CONIM_ITS ---
Providers/Reason For Consult Consulting Physician/Specialty*: Hematology Reason for Consult*: Severe thrombocytopenia Requesting Physician: José Zavala Attending Physician: José Zavala Primary Care Provider: Jeni Tai History of Present Illness History of Present Illness This is an 87-year-old man with severe thrombocytopenia. He has hypertension, dyslipidemia, diastolic dysfunction, type 2 diabetes, and peripheral neuropathy. He has a history of atrial fibrillation and a history of prior CVA. He also has a history of chronic back pain which was further complicated by an acute traumatic L2 vertebral compression fraction in August 2022. On 08/31/2022 he was admitted to the hospital with moderately severe anemia in association with acute GI bleeding. His serum iron studies showed low bean sferrin saturation at 4.9%, consistent with iron deficiency. He was transferred out for GI evaluation, but those records are currently not available. He ultimately was discharged home on oral iron supplementation. On 11/10/2022 he was seen in the emergency room after he was found to have severe thrombocytopenia. The initial CBC showed hemoglobin low at 9.9 g with hematocrit 32.8%. The red cell indices were hypochromic/microcytic. The white blood cell count was slightly low at 3700. The platelet count was 1000. His further laboratory studies included a repeat CBC showing hemoglobin 10.1 g, white blood cell count 4300, and platelet count 3000. Comprehensive metabolic profile showed borderline renal function with BUN 14 and creatinine 1.1 mg/dL. Bilirubin and liver enzymes were normal. The serum iron studies showed low normal transferrin saturation at 21.0%. The B12 level was 1392 pg/mL. LDH was normal at 208 U/L. He was noted to have a petechial eruption on both legs. He had no active bleeding. With those findings, he was admitted to the hospital, and he began on steroid therapy with dexamethasone 40 mg daily for 4 days. His treatment also included IVIG 1 g/kg by IV infusion daily for 2 days. He completed his initial IVIG infusion last evening, which he tolerated well. His repeat CBC today shows hemoglobin down slightly at 9.4 g with hematocrit 32.6%. The white blood cell count decreased to 1100 with absolute neutrophil count 570. The platelet count increased just slightly to 8000. He feels pretty good generally, though he has had very limited activity due to his back pain. He ambulates only very short distances with a walker. His ECOG score is 3. He has not had good appetite. He has not had fever or night sweats. He has not had epistaxis or gum bleeding, and he is not been aware of any recurrence of GI bleeding. He has some shortness of breath. He does not complain of chest pain. He has chronic back pain and he also reports having some discomfort in his hips. He has numbness/tingling on the bottoms of his feet. Review of Systems Narrative: Constitutional: Has limited activity. Appetite is not good, but he is weight is stable. No fever, night sweats, or hot flashes. ECOG score is 3 Eyes:?He has had some decline in vision in association with cataracts. ENMT: He has some hearing loss. No sinus congestion/drainage. No mouth sores. No sore throat or difficulty swallowing. Hematologic/Lymphatic: He has easy bruising, but no active bleeding. Respiratory: Has some shortness of breath. He has occasional cough. No pleuritic pain or hemoptysis. Cardiovascular: No angina pain. No palpitations. Gastrointestinal: No nausea or vomiting. He has had some acid reflux. He has some mild constipation. He has not recently been aware of any blood in the stool or black stools. Genitourinary: No dysuria or hematuria. No urinary frequency. He sometimes has urgency with urination. No incontinence. Musculoskeletal: He has chronic back pain. Integumentary: He has a petechial skin eruption. Neurologic: No headache. He has difficulty with balance. He has numbness/tingling on the bottoms of his feet. Psych:?No anxiety and depression. No insomnia. Medications/Allergies Home Medications Medication Instructions Recorded Confirmed Last Taken Type nitroglycerin 0.4 mg sublingual 0.4 mg sublingual Q5M PRN Chest 03/17/20 11/10/22 Unknown History tablet Pain prednisone 20 mg tablet See Rx Instructions .Route .COMPLEX 01/08/22 11/10/22 1 Week Ago History ~08/24/22 aspirin 81 mg tablet,delayed 81 mg PO QAM 11/10/22 11/10/22 11/10/22 History release celecoxib 200 mg capsule (Celebrex) 200 mg PO DAILY 11/10/22 11/10/22 Unknown History ferrous sulfate 325 mg (65 mg 325 mg PO DAILY 11/10/22 11/10/22 Unknown History iron) tablet gabapentin 300 mg capsule 300 - 600 mg PO QAM 11/10/22 11/10/22 11/10/22 History hydrocodone 7.5 mg-acetaminophen 1 tab PO TID PRN Pain 11/10/22 11/10/22 Unknown History 325 mg tablet tramadol 50 mg tablet 50 mg PO .q4-6 hrs PRN pain #30 11/10/22 11/10/22 Unknown Rx tabs Allergies Allergy/AdvReac Type Severity Reaction Status Date / Time No Known Allergies Allergy Verified 11/10/22 16:02 Current Medications Generic Name Dose Route Start Last Admin Trade Name Freq PRN Reason Stop Dose Admin Acetaminophen 650 mg 11/10/22 20:15 11/11/22 10:53 Acetaminophen 325 Mg Tablet PO 650 mg Q6H PRN Administration Mild/Mod Pain Or Temp >/= 101 Dexamethasone 40 mg 11/10/22 18:12 11/11/22 10:48 Dexamethasone 4 Mg Tablet PO 40 mg DAILY AMARA Administration Ferrous Sulfate 325 mg 11/11/22 09:00 11/11/22 10:49 Ferrous Sulfate Ec 325 Mg Tablet PO 325 mg DAILY AMARA Administration Gabapentin 300 mg 11/11/22 06:00 11/11/22 06:21 Gabapentin 300 Mg Capsule PO 300 mg QAM AMARA Administration Pantoprazole Sodium 40 mg 11/10/22 18:12 11/11/22 10:[address] 40 Mg Tablet PO 40 mg DAILY AMARA Administration Tramadol HCl 50 mg 11/10/22 20:15 11/11/22 10:53 Tramadol 50 Mg Tablet PO 50 mg Q6H PRN Administration pain PFSH Acute PFSH: Medical History CVA (cerebral vascular accident) Diabetes Diastolic dysfunction Dyslipidemia GI bleed HTN (hypertension) Pain management contract agreement Sleep apnea Surgical History S/P appendectomy Family History Father Stroke Mother CHF (congestive heart failure) Social History Smoking and tobacco status: former smoker Second hand smoke exposure: No Alcohol intake: current Alcohol intake frequency: 0-2 Drinks per Day Alcohol type: hard liquor Substance/Drug Use: never Household members: spouse Marital status: service: No Current occupational status: retired Vitals/I&O/Wt Last Vital Signs Temp 97.4 F L 11/11/22 16:00 Pulse 90 11/11/22 16:00 Resp 18 11/11/22 16:00 BP 130/76 11/11/22 16:00 Pulse Ox 95 11/11/22 16:00 O2 Del Method Room Air 11/11/22 16:00 11/11/22 11/11/22 11/11/22 06:59 14:59 22:59 Intake Total 1000 / 1120 1160 / 1160 Output Total 400 / 400 600 / 600 Balance 600 / 720 560 / 560 Weight last 48 hrs Weight 84.822 kg Weight 86.183 kg Physical Exam Narrative: Constitutional: Pretty good generally. Eyes: Sclerae nonicteric. Conjunctivae clear. ENMT: No lesions noted in the oral cavity. In particular, there are no mucosal hemorrhages. Hematologic/Lymphatic: No cervical, clavicular, or axillary adenopathy. Respiratory: Lungs are clear with good air movement bilaterally. Cardiovascular: Heart rhythm is regular. There is no murmur, gallop, or rub noted. Abdomen: Soft and non-tender. Liver and spleen are not enlarged. There is no abdominal mass or ascites noted and there is no inguinal adenopathy. Extremities: No edema. Pedal pulses are palpable bilaterally. Integumentary: There is a prominent petechial eruption on both legs. There are multiple ecchymoses on both arms. Neurologic: No focal neurologic deficits noted. Data 11/11/22 04:56 11/11/22 04:56 Other data: On my review of the blood smear there is severe thrombocytopenia, as expected. There is a population of macrocytic red cells and there are some elliptocytes present. There is just a very rare nucleated RBC. There are some atypical appearing lymphocytes. Neutrophils are decreased, but normal in appearance. A&P Assessment and plan (1) Severe thrombocytopenia: Patient with severe thrombocytopenia occurring in association with mild to moderately severe anemia and mild neutropenia. 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 He has developed more severe neutropenia following the initial infusion of IVIG. However, at this point I would stay the course and continue his high-dose dexamethasone and continue with his second IVIG infusion. If he is not showing response, then consider transferring to a tertiary facility, as I do not believe we would have bone marrow aspiration/biopsy available here until next week. Coding Level of Care Code 97892 Diagnoses Severe thrombocytopenia D69.6 Time Spent (min) 60 Comment Includes preparation, [id number] time with the patient, and documentation
[2022-11-11 20:00] VITALS: BP 141/78; PULSE 78; RESP 16; TEMP 36.7; O2SAT 98
[2022-11-12] VITALS: BP 146/82; PULSE 84; RESP 17; TEMP 36.4; O2SAT 97
[2022-11-12 03:55] VITALS: BP 143/83; PULSE 79; RESP 17; TEMP 36.3; O2SAT 97
[2022-11-12 04:45] LABS: Basophils % 0.1 %; Eosinophils % 0.1 %; Hematocrit 32.2 % (42.0-52.0); Hemoglobin 9.5 g/dL (11.7-16.6); Lymphocytes # 0.9 10^3/uL (0.8-4.8); Lymphocytes % 10.5 %; Mean Corpuscular HGB Conc 29.5 g/dL (30.0-36.0); Mean Corpuscular Hemoglobin 23.6 pg (28.0-34.0); Mean Corpuscular Volume 80.1 fl (80-94); Monocytes # 0.2 10^3/uL (0.2-0.9); Monocytes % 2.7 %; Neutrophils # 7.32 10^3/uL (1.8-7.7); Neutrophils % 86.2 %; Nucleated Red Blood Cells % 0 %; Platelet Count 58 10^3/cmm (130-400); Red Blood Count 4.02 10^6/uL (4.1-5.3); Red Cell Distribution Width 23.1 % (12.1-15.1); White Blood Count 8.5 10^3/uL (4.0-10.0)
[2022-11-12 05:07] LABS: Alanine Aminotransferase 10 U/L (0-41); Albumin Level 2.9 g/dL (3.5-5.2); Alkaline Phosphatase 56 U/L (40-130); Blood Urea Nitrogen 27 mg/dL (8-23); Calcium 8.5 mg/dL (8.5-10.5); Carbon Dioxide 19 mmol/L (22-29); Chloride 98 mmol/L (98-107); Globulin 5.7 g/dL (1.3-4.6); Glucose 140 mg/dL (65-115); Magnesium 1.9 mg/dL (1.7-2.3); Osmolality Calculated 273 mOsm/kg (285-295); Sodium 128 mmol/L (136-145); Total Bilirubin 0.5 mg/dL (0.15-1.2); Total Protein 8.6 g/dL (6.6-8.7)
[2022-11-12 05:10] LABS: Aspartate Amino Transferase 26 U/L (0-40)
[2022-11-12] MEDS: gabapentin 300 mg Capsule PO (05:15)
[2022-11-12 06:00] VITALS: BMI 29.8
[2022-11-12 08:00] VITALS: BP 132/70; PULSE 75; RESP 15; TEMP 36.7; O2SAT 98
[2022-11-12] MEDS: folic acid 1 mg Tablet PO (10:07)
[2022-11-12] MEDS: TRAMadol 50 mg Tablet PO ×2 (10:07→16:09)
[2022-11-12] MEDS: multivitamin therapeutic Tablet 1 TAB PO (10:08)
[2022-11-12] MEDS: dexamethasone 4 mg Tablet 40 MG PO (10:08)
[2022-11-12] MEDS: thiamine 100 mg Tablet PO (10:08)
[2022-11-12] MEDS: ferrous sulfate EC 325 mg Tablet PO (10:08)
[2022-11-12] MEDS: pantoprazole DR 40 mg Tablet PO (10:08)
[2022-11-12 12:00] VITALS: BP 144/90; PULSE 72; RESP 15; TEMP 36.4; O2SAT 98
--- NOTE | 2022-11-12 18:55 | P.DS_ITS ---
Discharge Providers Date of Admission: 11/10/22 18:43 Date of Discharge: November 12, 2022 Attending Provider at Admission: José Zavala Attending Provider at Discharge: José Zavala Primary Care Provider: Jeni Tai Diagnoses at Discharge Discharge Diagnosis (1) Severe thrombocytopenia: Status: Acute Reason for Visit Reason for Visit: abnormal Labs Brief History: Very pleasant 87-year-old gentleman with history of chronic back pain, CVA, other comorbidities was brought in for evaluation due to abnormal lab with a very low platelet count of 1000.? He has noticed having petechiae on his lower extremities.? Denies noticing any bleeding. He takes aspirin due to history of stroke.? Takes Tylenol but is noted to have celecoxib on his home medications as well.? He does not remember whether he takes it. He states that he lives alone with 2 cats.? He is okay with staying in the hospital for treatment but does not want anything to be involved.? He states that he is very old.? He states that he certainly would not want CPR in case of cardiopulmonary arrest.? He would be okay with transient intubation in case of respiratory arrest alone.? He would not otherwise want any extreme measures.? Nature has a way of taking care of things . He states he otherwise feels he has been doing fairly well.? But has been having difficulty with his back pain and walking.? Has been needing to use his walker at all times.? Denies any falls or injury. He was counseled on the risk of bleeding. Hospital Course Hospital Course He was started on Decadron and IVIG and consultation with hematology, day after admission he was noted to have neutropenia, but some improvement in thrombocytopenia, platelets up to 8000. He is noted to have persistent anemia, normocytic, with increased RDW. Platelets continue to respond to treatment, however, with increase up to 58,000. As per discussion with hematology is not clear whether neutropenia was transient secondary to IVIG however, cannot exclude bone marrow pathology at this time and due to this he is asked to further follow-up in office for reassessment of both thrombocytopenia as well as possibility of bone marrow disorder. 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 As his neutropenia has resolved today, platelets continue to improve, as per discussion with hematology he is okay to discharge to complete additional day of Decadron tomorrow for 4 days of therapy and continuation with prednisone 20 mg twice daily until follow-up with hematology. He additionally is asked to abstain from any alcohol as alcohol may be contributing to bone marrow suppression. Aspirin is held for now. Celebrex was discontinued. All findings and plans also discussed with Maty Jm who will be checking on him and seeing that he completes the recommendations. With steroids, thrombocytopenia, EtOH, is also started on PPI for now. Physical Exam Const: COMMON NORMALS: patient oriented x3 and alert GENERAL APPEARANCE: cooperative ORIENTATION/CONSCIOUSNESS: Yes awake HENMT: COMMON NORMALS: oropharynx normal OTHER: Mucosal petechiae, no bleeding Neck/C-Spine: COMMON NORMALS: no JVD Resp: COMMON NORMALS: normal respiratory effort and clear to auscultation bilaterally AUSCULTATION: clear to auscultation bilaterally Cardio: COMMON NORMALS: no JVD, regular rhythm, S1 normal heart sound present, S2 normal heart sound present and No murmurs present (Cardio) RHYTHM: regular rhythm HEART SOUNDS: S1 normal heart sound present and S2 normal heart sound present GI: COMMON NORMALS: Normal to inspection, nondistended, normoactive bowel sounds present, Soft to palpation and non-tender PALPATION: Yes Soft to palpation Extremity: COMMON NORMALS: no joint enlargement and no pedal edema Neuro: COMMON NORMALS: patient oriented x3 and moves all extremities SENSORIUM/ORIENTATION: Yes alert Skin: COMMON NORMALS: no rashes or lesions noted GENERAL SKIN EXAM: no rashes or lesions noted OTHER: Petechiae BL LE Discharge Data Studies Completed and Pending Completed Studies During Hospitalization Category Date Time Status CT abdomen pelvis w con* [id number] Stat Cat Scan 11/10/22 16:18 Completed Radiology Impressions Abdomen/Pelvis CT 11/10/22 16:18 IMPRESSION: 1. Negative for retroperitoneal hemorrhage as in clinical indication. 2. Hepatic steatosis. 3. Left kidney cyst, negative follow up. 4. Diverticulosis without diverticulitis. 5. L2 vertebral body compression fracture without retropulsion of bony fragments, new compared to prior exam, age indeterminate. COMMENTS: Consistent with the [employer]'s Incidental Findings Committee white paper (J Am Jeannette Radiol 2018): Any incidental renal lesion less than 1 cm or classified as too small to characterize, or any incidental cystic renal lesion characterized as simple-appearing, is likely benign. No follow-up imaging is recommended for these lesions per consensus recommendations based on imaging criteria. Laboratory Results WBC 8.5 10^3/uL (4.0-10.0) 11/12/22 04:35 RBC 4.02 10^6/uL (4.1-5.3) L 11/12/22 04:35 Hgb 9.5 g/dL (11.7-16.6) L 11/12/22 04:35 Hct 32.2 % (42.0-52.0) L 11/12/22 04:35 MCV 80.1 fl (80-94) 11/12/22 04:35 MCH 23.6 pg (28.0-34.0) L 11/12/22 04:35 MCHC 29.5 g/dL (30.0-36.0) L 11/12/22 04:35 RDW 23.1 % (12.1-15.1) H 11/12/22 04:35 Plt Count 58 10^3/cmm (130-400) L D 11/12/22 04:35 MPV TNP 11/12/22 04:35 Neut % (Auto) 86.2 % 11/12/22 04:35 Lymph % (Auto) 10.5 % 11/12/22 04:35 [place]ab % (Auto) 2.7 % 11/12/22 04:35 Eos % (Auto) 0.1 % 11/12/22 04:35 Baso % (Auto) 0.1 % 11/12/22 04:35 Neut # (Auto) 7.32 10^3/uL (1.8-7.7) 11/12/22 04:35 Lymph # (Auto) 0.9 10^3/uL (0.8-4.8) 11/12/22 04:35 [place] # (Auto) 0.2 10^3/uL (0.2-0.9) 11/12/22 04:35 Eos # (Auto) 0.0 10^3/uL (0.0-0.8) 11/12/22 04:35 Baso # (Auto) 0.0 10^3/uL (0.0-0.1) 11/12/22 04:35 Nucleated RBC % (auto) 0 % 11/12/22 04:35 Total Counted 100 (0-100) 11/10/22 15:32 Atypical Lymphs % 5.0 % (0-5) 11/10/22 15:32 Absolute Neutrophils 2.1 10^3/cmm (1.4-6.5) 11/10/22 15:32 Segmented Neutrophils 46 % 11/10/22 15:32 Abs Segm Neuts (Man) 2.0 10/cmm (1.6-7.1) 11/10/22 15:32 Band Neutrophils 3.0 % 11/10/22 15:32 Abs Band Neuts (Man) 0.1 10^3/cmm (0.0-1.2) 11/10/22 15:32 Absolute Lymphocytes 1.7 10^3/cmm (1.2-3.4) 11/10/22 15:32 Lymphocytes (Manual) 35 % 11/10/22 15:32 Monocytes (Manual) 4.0 % 11/10/22 15:32 Absolute Monocytes 0.2 10^3/cmm (0.1-0.6) 11/10/22 15:32 Eosinophils (Manual) 5 % 11/10/22 15:32 Absolute Eosinophils 0.2 10^3/cmm (0.0-0.7) 11/10/22 15:32 Basophils (Manual) 1.0 % 11/10/22 15:32 Absolute Basophils 0.0 10^3/cmm (0.0-0.2) 11/10/22 15:32 Metamyelocytes 1.0 % 11/10/22 15:32 Nucleated RBCs # 0.0 /100WBC 11/12/22 04:35 Platelet Estimate Decreased (Normal) 11/10/22 15:32 Polychromasia 1+ H 11/10/22 15:32 Hypochromasia 3+ H 11/10/22 15:32 Anisocytosis 2+ H 11/10/22 15:32 Schistocytes 1+ H 11/10/22 15:32 Peripher Smr Path Cons Sent for review 11/10/22 Unknown Haptoglobin 27.0 mg/L (30-200) L 11/10/22 15:32 Sodium 128 mmol/L (136-145) L 11/12/22 04:35 Potassium 5.0 mmol/L (3.5-5.1) 11/12/22 04:35 Chloride 98 mmol/L (98-107) 11/12/22 04:35 Carbon Dioxide 19 mmol/L (22-29) L 11/12/22 04:35 Anion Gap 16.0 (5-19) 11/12/22 04:35 BUN 27 mg/dL (8-23) H 11/12/22 04:35 Creatinine 1.0 mg/dL (0.7-1.2) 11/12/22 04:35 GFR Calculation Not Reportable 11/12/22 04:35 Glucose 140 mg/dL (65-115) H 11/12/22 04:35 POC Glucose 97 mg/dL (70-110) 11/10/22 21:01 Calculated Osmolality 273 mOsm/kg (285-295) L 11/12/22 04:35 Calcium 8.5 mg/dL (8.5-10.5) 11/12/22 04:35 Magnesium 1.9 mg/dL (1.7-2.3) 11/12/22 04:35 Iron 60 ug/dL (59-158) 11/10/22 15:32 TIBC 285 mcg/dl 11/10/22 15:32 % Saturation 21.0 % (20-50) 11/10/22 15:32 Unsat Iron Binding 225 ug/dL (112-347) 11/10/22 15:32 Total Bilirubin 0.5 mg/dL (0.15-1.2) 11/12/22 04:35 AST 26 U/L (0-40) 11/12/22 04:35 ALT 10 U/L (0-41) 11/12/22 04:35 Alkaline Phosphatase 56 U/L (40-130) 11/12/22 04:35 Lactate Dehydrogenase 208 U/L (135-225) 11/10/22 15:32 Total Protein 8.6 g/dL (6.6-8.7) 11/12/22 04:35 Albumin 2.9 g/dL (3.5-5.2) L 11/12/22 04:35 Globulin 5.7 g/dL (1.3-4.6) H 11/12/22 04:35 Vitamin B12 1392 pg/mL (232-1245) H 11/10/22 15:32 TSH 3.61 uIU/mL (0.27-4.20) 11/10/22 15:32 Vitals Last Vital Signs Temp 97.5 F L 11/12/22 12:00 Pulse 72 11/12/22 12:00 Resp 15 11/12/22 12:00 BP 144/90 11/12/22 12:00 Pulse Ox 98 11/12/22 12:00 O2 Del Method Room Air 11/12/22 12:00 Discharge Plan Discharge Patient Disposition: Home Condition: Stable Prescriptions: New dexamethasone 4 mg Tablet 40 mg PO DAILY Qty: 1 0RF Rx Instructions: One more dose on Sat 11/13, then start prednisone pantoprazole 40 mg Tablet,Delayed Release (Dr/Ec) 40 mg PO DAILY Qty: 90 0RF folic acid 1 mg Tablet 1 mg PO DAILY Qty: 90 0RF Vitamin B-1 (mononitrate) 100 mg Tablet 100 mg PO DAILY Qty: 90 0RF Thera 400 mcg Tablet 1 tab PO DAILY Qty: 90 0RF prednisone 20 mg tablet 20 mg PO BID Qty: 30 0RF Continued nitroglycerin 0.4 mg tablet, sublingual 0.4 mg SUBLINGUAL Q5M PRN (Reason: Chest Pain) Rx Instructions: do not exceed 3 doses per episode tramadol 50 mg tablet 50 mg PO .q4-6 hrs PRN (Reason: pain) Qty: 30 0RF Rx Instructions: (rx not picked up from pharmacy as of 11/10/22) ferrous sulfate 325 mg (65 mg iron) Tablet 325 mg PO DAILY gabapentin 300 mg Capsule 300 - 600 mg PO QAM hydrocodone-acetaminophen 7.5-325 mg Tablet 1 tab PO TID PRN (Reason: Pain) Discontinued celecoxib [Celebrex] 200 mg Capsule 200 mg PO DAILY aspirin [Aspir-81] 81 mg Tablet,Delayed Release (Dr/Ec) 81 mg PO QAM prednisone 20 mg Tablet See Rx Instructions .ROUTE .COMPLEX Rx Instructions: DIRECTED NEEDED Discharge Orders: Discharge Order (Routine); Ordered 11/12/22 Ordered By: José Zavala Referrals: Jeni Tai PA [Primary Care Provider] - 11/25/22 8:20 am Jose Salinas MD [Hospitalist] - 7-10 days Patient Instructions: Prednisone (By mouth), Dexamethasone (By mouth), Immune Thrombocytopenia (DC), Thrombocytopenia (GEN), Pancytopenia (DC), Pancytopenia (GEN) Activity Restrictions/Additional Instructions: Complete 1 more tablet of dexamethasone on Monday 11/13 then switch to prednisone. Please follow-up with hematology for reassessment of platelets, further assessment for possible bone marrow disorder. Stop aspirin for now. Please stop Celebrex. Abstain from any alcohol, alcohol will suppress your bone marrow. Discharge Attestations Time Spent in Discharge Care*: greater than 30 min Quality Metrics Clinical Quality Measures [ No reported AMI, CVA or VTE this stay] Coding Level of Care Code Acute Code for Chg Fwd Diagnoses Severe thrombocytopenia D69.6
== END 2022-11-12 16:31 | disposition home health service (06) | DRG 813 ==
LOC: ER 17:03 → MEDSURG 18:44
PROVIDERS: Admitting Provider Internal Medicine; Emergency Provider Emergency Medicine; PCP Physician Assistant; Visit Provider Internal Medicine
DX: D69.3 Immune thrombocytopenic purpura (principal); D61.818 Other pancytopenia; G89.29 Other chronic pain; M54.9 Dorsalgia, unspecified; Z86.73 Personal history of transient ischemic attack (TIA), and cerebral infarction without residual deficits; D70.9 Neutropenia, unspecified; Z79.891 Long term (current) use of opiate analgesic; E11.42 Type 2 diabetes mellitus with diabetic polyneuropathy; E78.5 Hyperlipidemia, unspecified; I10 Essential (primary) hypertension; G47.30 Sleep apnea, unspecified; Z87.891 Personal history of nicotine dependence; F10.10 Alcohol abuse, uncomplicated
CPT/HCPCS: 36415; 36416; 74177; 80053; 80503; 82607; 82962; 83010; 83540; 83550; 83615; 83735; 84443; 85007; 85025; 85027; 85610; 96360; 96372; 97116; 97161; 99285; J1459; J3411; J7120; J8540; Q9967

== ENCOUNTER → 2022-11-18 10:41 | Outpatient (BNVA) | payer MEDICARE, OTHER, SELFPAY | PROVIDERS: PCP Physician Assistant; Visit Provider Orthopaedic Surgery | DX: Z01.818 Encounter for other preprocedural examination (principal); Z09 Encounter for follow-up examination after completed treatment for conditions other than malignant neoplasm; S32.000A Wedge compression fracture of unspecified lumbar vertebra, initial encounter for closed fracture; X58.XXXA Exposure to other specified factors, initial encounter | CPT/HCPCS: 80053; 81001; 83036; 85025; 99214 ==

== ENCOUNTER 2022-11-25 15:39 | Oncology outpatient (recurring) (ONCR) | payer MEDICARE, OTHER, SELFPAY ==
[2022-11-25 17:41] LABS: Basophils % 0.6 %; Eosinophils % 0.2 %; Hematocrit 35.8 % (42.0-52.0); Hemoglobin 10.5 g/dL (11.7-16.6); Lymphocytes # 0.6 10^3/uL (0.8-4.8); Lymphocytes % 11.2 %; Mean Corpuscular HGB Conc 29.3 g/dL (30.0-36.0); Mean Corpuscular Hemoglobin 23.6 pg (28.0-34.0); Mean Corpuscular Volume 80.6 fl (80-94); Mean Platelet Volume 11.8 fL (7.4-10.4); Monocytes # 0.4 10^3/uL (0.2-0.9); Monocytes % 8.2 %; Neutrophils # 3.95 10^3/uL (1.8-7.7); Neutrophils % 79.4 %; Nucleated Red Blood Cells % 0 %; Platelet Count 207 10^3/cmm (130-400); Red Blood Count 4.44 10^6/uL (4.1-5.3); Red Cell Distribution Width 22.8 % (12.1-15.1)
[2022-11-25 18:41] LABS: Alanine Aminotransferase 10 U/L (0-41); Alkaline Phosphatase 55 U/L (40-130); Anion Gap 18.3 (5-19); Aspartate Amino Transferase 19 U/L (0-40); Blood Urea Nitrogen 28 mg/dL (8-23); Calcium 8.3 mg/dL (8.5-10.5); Carbon Dioxide 16 mmol/L (22-29); Chloride 101 mmol/L (98-107); Globulin 3.8 g/dL (1.3-4.6); Glucose 136 mg/dL (65-115); Osmolality Calculated 278 mOsm/kg (285-295); Potassium 5.3 mmol/L (3.5-5.1); Sodium 130 mmol/L (136-145); Total Bilirubin 0.2 mg/dL (0.15-1.2); Total Protein 6.8 g/dL (6.6-8.7)
== END 2022-12-10 23:59 | disposition home or self-care (01) ==
PROVIDERS: PCP Physician Assistant; Visit Provider Internal Medicine Medical Oncology
DX: D69.3 Immune thrombocytopenic purpura (principal); D50.9 Iron deficiency anemia, unspecified; Z79.52 Long term (current) use of systemic steroids; Z79.899 Other long term (current) drug therapy
CPT/HCPCS: 80053; 85025; 99214

== ENCOUNTER 2022-12-08 07:46 | Day surgery (SDC) | payer MEDICARE, OTHER, SELFPAY ==
[2022-12-07 08:41] VITALS: BMI 29.8
[2022-12-08] VITALS (11 sets, daily range): BP systolic 94–126; BP diastolic 58–78; PULSE 75–99; RESP 15–18; TEMP 36.2–36.7; O2SAT 92–100
--- NOTE | 2022-12-08 07:53 | SC_ITS ---
WS: [id number] Exam: C-arm FL for Kyphoplasty Date/Time of Exam: 12/08/2022 7:53 AM Reason For Exam: Kyphoplasty L2 and L4 Intraoperative AP and lateral C-arm images of the lumbar spine are obtained. The images depict kyphop lasty involving compression fractures of L2 and L4. Images obtained for intraoperative visualization.
[2022-12-08] MEDS: sodium chloride 0.9% 1,000 ML 30 ML IV (08:25)
--- NOTE | 2022-12-08 08:28 | ECG_ITS ---
[facility] Test Date: 2022-12-08 Pat Name: Lewis Snyder Department: Room: Gender: Male Ssis Architect: : [id number] Requested By: Chelsy Still Order Number: [id number] Ezekiel MD: Krystle Ortiz M.D. Measurements Intervals [place] Rate: 87 P: 0 IN: 0 QRS: 63 QRSD: 143 T: -21 QT: 400 QTc: 484 Interpretive Statements ATRIAL FIBRILLATION RIGHT BUNDLE BRANCH BLOCK [120+ ms QRS DURATION, UPRIGHT V1, 40+ ms S IN I/aVL/V4/V5/V6] Compared to ECG 01/08/2022 13:18:50 Ventricular premature complex(es) no longer present Aberrant conduction of supraventricular beat(s) no longer present Electronically Signed On 12-09-2022 12:28:36 CDT by Krystle Ortiz M.D. [id number]
--- NOTE | 2022-12-08 09:51 | ANES.PREANE2 ---
Pre-Anesthetic Assessment Height/Weight: Height 1.68 m Weight 83.915 kg Temp Pulse Resp BP Pulse Ox O2 Del Method 97.4 F L 99 17 121/71 94 Room Air 12/08/22 08:04 12/08/22 08:04 12/08/22 08:04 12/08/22 08:04 12/08/22 08:04 12/08/22 08:08 Preop Diagnosis: Lumbar compression fracture Operation Date: 12/08/22 09:25 Proposed Procedures p [id number] x 2,S32.020A,S32.040(Not Applicable) - Mike Duarte DO Familial anesthetic complications: None Was Beta Francisco taken within 24 hours: N/A Was Clonidine taken within 24 hours: N/A Last intake: Intake Last Solid Date 12/07/22 Social Tobacco (chews) and No alcohol Exam alert, oriented x 3, clear to auscultation bilaterally and regular rate & rhythm Airway Mallampati: Class II Dentition: full Pulmonary Sleep Apnea CV/HEM Atrial Fibrillation and Anemia GI Gastroesophageal Reflux Disease Metabolic Diabetes Mellitus and Hyperlipidemia Neuropsych Cerebrovascular Accident Anesthetic Plan ASA status: 3 Anesthesia: General Risk of > 500 ml blood loss (7ml/kg in children): No Medications/Allergies Home Medications Medication Instructions Recorded Confirmed Last Taken Type gabapentin 300 mg capsule 300 - 600 mg PO QAM 11/10/22 12/07/22 12/07/22 History folic acid 1 mg tablet 1 mg PO DAILY #90 tabs 11/12/22 12/07/22 12/07/22 Rx pantoprazole 40 mg tablet,delayed 40 mg PO DAILY #90 tabs 11/12/22 12/07/22 12/07/22 Rx release prednisone 20 mg tablet 20 mg PO BID #45 tabs 11/26/22 12/07/22 12/07/22 Rx hydrocodone 7.5 mg-acetaminophen 1 tab PO BID PRN Pain 30 days #60 11/29/22 12/07/22 12/08/22 Rx 325 mg tablet tabs ciprofloxacin HCl 500 mg tablet 500 mg PO BID #10 tabs 12/06/22 12/07/22 12/07/22 Rx Allergies Allergy/AdvReac Type Severity Reaction Status Date / Time No Known Allergies Allergy Verified 12/07/22 08:38 Current Medications Generic Name Dose Route Start Last Admin Trade Name Freq PRN Reason Stop Dose Admin Sodium Chloride 1,000 mls @ 30 mls/hr 12/08/22 08:00 12/08/22 08:25 Sodium Chloride 0.9% IV 12/09/22 07:59 30 mls/hr .Q24H AMARA Administration PFSH Anesthesia Medical History (Updated 11/25/22 @ 16:56 by Jose Salinas MD) Autoimmune thrombocytopenia CVA (cerebral vascular accident) Diabetes Diastolic dysfunction Dyslipidemia GI bleed HTN (hypertension) Pain management contract agreement Sleep apnea Surgical History S/P appendectomy Family History Father Stroke Mother CHF (congestive heart failure) Social History Smoking and tobacco status: former smoker Second hand smoke exposure: No Alcohol intake: current Alcohol intake frequency: 0-2 Drinks per Day Alcohol type: hard liquor Substance/Drug Use: never Household members: spouse Marital status: service: No Current occupational status: retired Data Anesthesia Cardiac Studies: No Data to Display
--- NOTE | 2022-12-08 10:15 | W.PM.OPSUD ---
Surgery/Procedure H&P Update DATE OF PROCEDURE: December 08, 2022 DATE H&P PERFORMED: 12/02/22 H&P UPDATE INFORMATION: I have reviewed H&P completed within last 30 days, I have examined patient prior to procedure and No changes to prior documentation PREOP DIAGNOSIS: Lumbar compression fracture PLANNED PROCEDURE: Operation Date: 12/08/22 09:25 Proposed Procedures p [id number] x 2,S32.020A,S32.040(Not Applicable) - Mike Duarte DO
[2022-12-08 10:39] LABS: Anion Gap 14.5 (5-19); Blood Urea Nitrogen 28 mg/dL (8-23); Calcium 8.7 mg/dL (8.5-10.5); Carbon Dioxide 24 mmol/L (22-29); Chloride 107 mmol/L (98-107); Glucose 92 mg/dL (65-115); Osmolality Calculated 299 mOsm/kg (285-295); Potassium 3.5 mmol/L (3.5-5.1); Sodium 142 mmol/L (136-145)
[2022-12-08] MEDS: lidocaine-epi 2% 20 mL INJ INJECTION (10:42)
[2022-12-08] MEDS: ceFAZolin 2,000 MG in sodium chloride 0.9% (plus) 50 ML 100 MG IV (10:46)
[2022-12-08] MEDS: iohexol 300 mg/mL 50 mL Btl XX (10:55)
--- NOTE | 2022-12-08 11:52 | PC.NURSE ---
Pt arrived to PACU, resting comfortably, pt denies any pain or nausea at this time. Dressing to back C/D/I, able to move all extremities.
--- NOTE | 2022-12-08 12:04 | PM.OP ---
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 Kyphoplasty L2 2. Kyphoplasty L4 Surgeon: Mike Duarte Estimated blood loss (mL): 5 Procedure: 1. Kyphoplasty L2 2. Kyphoplasty L4 Patient was brought to the operative suite after undergoing anesthesia was placed in the prone position. All his impingement well-padded. Patient was prepped draped also fashion. Skin incision made over the L2 level. The awl was inserted. The biopsy tube was inserted and core biopsy was taken from L2. Next tension was brought to placing the drill. Followed by the balloon. The balloon bridge through the bottom wire selected due to the contralateral side as well. The skin incision made on the right pedicle. In the was inserted. Followed by the drill followed by the balloon. Cement was then injected into the L2 level. The cement got into the central area but did breach through the inferior pedicle as well as the superior pedicle. But had good good placement overall. Was brought to the L4 level. Status was made over the L L4 pedicle the awl was inserted followed by the drill. Balloon was inserted. And then the cement was inserted. Cement had good fill on both AP lateral fluoroscopy. Imaging was taken once the tubes were taken out and there was good fill of the bodies as well as good position of cement. Wounds irrigated closed with nylon suture. Sterile dressings applied patient transferred to PACU in stable condition.
[2022-12-08] MEDS: fentaNYL 50 mcg/mL INJ 2mL IVP (12:05)
[2022-12-08] MEDS: HYDROcodone-acetaminophen 10-325 mg Tablet 1 TAB PO (12:51)
--- NOTE | 2022-12-08 15:55 | ANE.PACU2 ---
Inpatient post-anesthesia follow up: Airway intact: Yes Vital signs: Temperature 97.2 F Pulse Rate 75 Respiratory Rate 17 Blood Pressure 120/62 Pulse Oximetry 92 Oxygen Delivery Me thod Room Air Oxygen Flow Rate 6 Fraction of Inspir ed Oxygen Hydration adequate: Yes Nausea and vomiting: No Pain level: 1 Mental status: Baseline
== END 2022-12-08 13:15 | disposition home or self-care (01) ==
PROVIDERS: Anesthesiology; PCP Physician Assistant; Visit Provider Orthopaedic Surgery
PROC: (CPT 22514; principal; 2022-12-08 09:15)
DX: M80.08XA Age-related osteoporosis with current pathological fracture, vertebra(e), initial encounter for fracture (principal); I48.91 Unspecified atrial fibrillation; I45.10 Unspecified right bundle-branch block; F17.290 Nicotine dependence, other tobacco product, uncomplicated; G47.30 Sleep apnea, unspecified; K21.9 Gastro-esophageal reflux disease without esophagitis; E11.9 Type 2 diabetes mellitus without complications; E78.5 Hyperlipidemia, unspecified; Z86.73 Personal history of transient ischemic attack (TIA), and cerebral infarction without residual deficits; Z79.52 Long term (current) use of systemic steroids; Z79.891 Long term (current) use of opiate analgesic
CPT/HCPCS: 22514; 22515; 76000; 80048; 88307; 88311; 93005; J0690; J2370; J2405; J2704; J2710; J3010; J3490; J7030; Q9967

== ENCOUNTER 2022-12-14 06:50 | Emergency (ER) | payer OTHER, SELFPAY ==
[2022-12-14] VITALS (9 sets, daily range): BP systolic 116–121; BP diastolic 67–88; PULSE 78–86; RESP 16; TEMP 36.9; O2SAT 93–96; BMI 28.1
--- NOTE | 2022-12-14 06:54 | W.ED.BACK ---
HPI - Back Pain/Injury General: Chief Complaint: Fall Stated Complaint: Fall with Back Pain Time Seen by Provider: 12/14/22 06:53 Source: patient Mode of arrival: ambulatory History of Present Illness: 87-year-old male with a history of osteoporosis and lumbar compression fractures she recently had an L1-L4 kyphoplasty done by Dr. Duarte. Patient reports she simply rolled out of bed. He denies any injury said initially his back hurt but is already improving. He has a history of lumbar stenosis with radiculopathy. EMS reported there was a gallon jug of vodka next to the bed MD elicited complaint: back pain Pertinent past history: prior back pain Onset (ago): hour(s) Severity: mild Quality: sharp Location: lumbar spine Radiation: none Exacerbating factors: none Relieving factors: none Context: fall Associated symptoms: Deny abdominal pain, arthralgias, chills, change in bowel habits, difficulty walking, dysuria, fatigue, fecal incontinence, fever(s), hematuria, myalgias, nausea, numbness, syncope, tingling/numbness/burning, urinary frequency, urinary urgency, vomiting or weakness Review of Systems Const: Denies: fever(s), chills or fatigue Card: Denies: syncope GI: Denies: abdominal pain, nausea, vomiting, fecal incontinence or change in bowel habits : Denies: dysuria, urinary urgency or hematuria Neuro: Denies: difficulty walking PFS ED PFSH: Medical History (Updated 12/14/22 @ 09:18 by Tomas Dominguez DO) Autoimmune thrombocytopenia CVA (cerebral vascular accident) Diabetes Diastolic dysfunction Dyslipidemia GI bleed HTN (hypertension) Lumbar compression fracture Lumbar stenosis with neurogenic claudication Pain management contract agreement Sleep apnea Surgical History (Updated 12/14/22 @ 06:55 by Tomas Dominguez DO) S/P appendectomy S/P kyphoplasty L2 L4 December 08, 2022 Family History Father Stroke Mother CHF (congestive heart failure) Social History Smoking and tobacco status: former smoker Second hand smoke exposure: No Alcohol intake: current Alcohol intake frequency: 0-2 Drinks per Day Alcohol type: hard liquor Substance/Drug Use: never Household members: spouse Marital status: service: No Current occupational status: retired Course Vital Signs: Vital signs: Vital Signs Temperature 98.5 F 12/14/22 06:51 Pulse Rate 78 12/14/22 09:48 Respiratory Rate 16 12/14/22 06:51 Blood Pressure 116/88 12/14/22 09:48 Pulse Oximetry 96 12/14/22 09:48 Oxygen Delivery Me thod Room Air 12/14/22 06:51 MDM - Back Pain/Injury Medical Decision Making Evidence of previous kyphoplasty's but no new compression fractures. Patient does not usually ambulate. Neurologically there is no findings. Patient has good recollection good speech enunciation at this time. Medical Records I reviewed the patient's medical records. Labs I reviewed the patient's lab results. 12/14/22 07:18 12/14/22 07:18 Radiology Impressions Lumbar Spine X-Ray 12/14/22 07:03 IMPRESSION: Redemonstrated compression fractures of L2 and L4 status post vertebral augmentation. No new fracture or change in alignment. Laboratory Results WBC 7.8 10^3/uL (4.0-10.0) 12/14/22 07:18 RBC 4.61 10^6/uL (4.1-5.3) 12/14/22 07:18 Hgb 10.7 g/dL (11.7-16.6) L 12/14/22 07:18 Hct 37.3 % (42.0-52.0) L 12/14/22 07:18 MCV 80.9 fl (80-94) 12/14/22 07:18 MCH 23.2 pg (28.0-34.0) L 12/14/22 07:18 MCHC 28.7 g/dL (30.0-36.0) L 12/14/22 07:18 RDW 20.7 % (12.1-15.1) H 12/14/22 07:18 Plt Count 137 10^3/cmm (130-400) 12/14/22 07:18 MPV 11.6 fL (7.4-10.4) H 12/14/22 07:18 Neut % (Auto) 70.8 % 12/14/22 07:18 Lymph % (Auto) 17.2 % 12/14/22 07:18 [place] % (Auto) 9.1 % 12/14/22 07:18 Eos % (Auto) 1.7 % 12/14/22 07:18 Baso % (Auto) 0.8 % 12/14/22 07:18 Neut # (Auto) 5.51 10^3/uL (1.8-7.7) 12/14/22 07:18 Lymph # (Auto) 1.3 10^3/uL (0.8-4.8) 12/14/22 07:18 [place] # (Auto) 0.7 10^3/uL (0.2-0.9) 12/14/22 07:18 Eos # (Auto) 0.1 10^3/uL (0.0-0.8) 12/14/22 07:18 Baso # (Auto) 0.1 10^3/uL (0.0-0.1) 12/14/22 07:18 Nucleated RBC % (auto) 0 % 12/14/22 07:18 Nucleated RBCs # 0.0 /100WBC 12/14/22 07:18 Sodium 140 mmol/L (136-145) 12/14/22 07:18 Potassium 4.2 mmol/L (3.5-5.1) 12/14/22 07:18 Chloride 107 mmol/L (98-107) 12/14/22 07:18 Carbon Dioxide 25 mmol/L (22-29) 12/14/22 07:18 Anion Gap 12.2 (5-19) 12/14/22 07:18 BUN 22 mg/dL (8-23) 12/14/22 07:18 Creatinine 1.2 mg/dL (0.7-1.2) 12/14/22 07:18 GFR Calculation Not Reportable 12/14/22 07:18 Glucose 114 mg/dL (65-115) 12/14/22 07:18 Calculated Osmolality 294 mOsm/kg (285-295) 12/14/22 07:18 Calcium 8.5 mg/dL (8.5-10.5) 12/14/22 07:18 Creatine Kinase 20 U/L (39-308) L 12/14/22 07:18 Urine Color Dark yellow (Yellow) 12/14/22 07:23 Urine Appearance Sl hazy (CLEAR) A 12/14/22 07:23 Urine pH 5 (5-7) 12/14/22 07:23 Ur Specific [place] 1.025 (1.005-1.030) 12/14/22 07:23 Urine Protein Trace (Negative) 12/14/22 07:23 Urine Glucose (UA) Norm (Normal) 12/14/22 07:23 Urine Ketones 1+ (Negative) H 12/14/22 07:23 Urine Blood Neg (Negative) 12/14/22 07:23 Urine Nitrate Negative (Negative) 12/14/22 07:23 Urine Bilirubin 1+ (Negative) H 12/14/22 07:23 Urine Urobilinogen Norm mg/dL (Negative) 12/14/22 07:23 Ur Leukocyte Esterase 2+ (Negative) H 12/14/22 07:23 Urine RBC 0-4 /hpf (0-2) H 12/14/22 07:23 Urine WBC 10-15 /hpf (0-5) H 12/14/22 07:23 Ur Squamous Epith Cells 0-4 /hpf (0-5) H 12/14/22 07:23 Amorphous Sediment Trace /hpf 12/14/22 07:23 Urine Bacteria Trace /hpf (NONE) 12/14/22 07:23 Hyaline Casts 0-4 /lpf H 12/14/22 07:23 Urine Mucus 2+ /hpf 12/14/22 07:23 Discharge Plan Discharge Patient Disposition: Home Clinical Impression: Fall, Lumbar compression fracture, Lumbar radiculopathy, Back pain, Cystitis Condition: Stable Prescriptions: New diclofenac sodium 75 mg tablet,delayed release (DR/EC) 75 mg PO Q12H PRN (Reason: pain) Qty: 20 0RF Bactrim DS 800-160 mg tablet 1 tab PO BID 7 Days Qty: 14 0RF No Action prednisone 20 mg tablet 20 mg PO BID Qty: 45 0RF Rx Instructions: take BID for 1 week then daily thereafter hydrocodone-acetaminophen 7.5-325 mg tablet 1 tab PO BID PRN (Reason: Pain) 30 Days Qty: 60 0RF ciprofloxacin HCl 500 mg tablet 500 mg PO BID Qty: 10 0RF gabapentin 300 mg Capsule 300 - 600 mg PO QAM pantoprazole 40 mg Tablet,Delayed Release (Dr/Ec) 40 mg PO DAILY Qty: 90 0RF folic acid 1 mg Tablet 1 mg PO DAILY Qty: 90 0RF hydrocodone-acetaminophen 10-325 mg tablet 1 tab PO Q4H PRN (Reason: pain) 7 Days Qty: 40 0RF Discharge Orders: Discharge ED (Routine); Ordered 12/14/22 Ordered By: Tomas Dominguez Referrals: Jeni Tai PA [Primary Care Provider] - Discharge Diet: Usual diet Discharge Activity: Increase activity as tolerated Patient Instructions: Opioid Safety, Pain Management Activity Restrictions/Additional Instructions: You are seen today for back pain. You can continue to use your previously prescribed pain medications as well as diclofenac 75 1 p.o. twice daily as needed follow-up with your primary care doctor. Coding Level of Care Code ED [employer] for Christos Martinez
--- NOTE | 2022-12-14 07:03 | XRR_ITS ---
PROCEDURE INFORMATION: Exam: XR Lumbosacral Spine Exam date and time: 12/14/2022 7:08 AM Age: 87 years old Clinical indication: Pain; Lumbago; Prior surgery; Surgery date: <1 month; Surgery type: S/P kyphoplasty; Additional info: Fall, recent kyphoplasty TECHNIQUE: Imaging protocol: Radiologic exam of the lumbosacral spine. Views: 2 or 3 views. COMPARISON: MR lumbar spine wo con* [id number] 11/03/2022 11:56 AM FINDINGS: Bones/joints: Redemonstrated compression fractures of L2 and L4 status post vertebral augmentation. Some extruded cement material is seen in the L1-L2 and L2-L3 disc spaces. No new fracture or change in alignment. Osteopenia. Moderate degenerative disc disease at L3-L4, L4-L5 and L5-S1. Moderate facet hypertrophy in the lower lumbar spine. Soft tissues: Unremarkable. XR/XR lumbar spine 2-3V* [id number] IMPRESSION: Redemonstrated compression fractures of L2 and L4 status post vertebral augmentation. No new fracture or change in alignment.
[2022-12-14 07:32] LABS: Basophils # 0.1 10^3/uL (0.0-0.1); Basophils % 0.8 %; Eosinophils # 0.1 10^3/uL (0.0-0.8); Eosinophils % 1.7 %; Hematocrit 37.3 % (42.0-52.0); Hemoglobin 10.7 g/dL (11.7-16.6); Lymphocytes # 1.3 10^3/uL (0.8-4.8); Lymphocytes % 17.2 %; Mean Corpuscular HGB Conc 28.7 g/dL (30.0-36.0); Mean Corpuscular Hemoglobin 23.2 pg (28.0-34.0); Mean Corpuscular Volume 80.9 fl (80-94); Mean Platelet Volume 11.6 fL (7.4-10.4); Monocytes # 0.7 10^3/uL (0.2-0.9); Monocytes % 9.1 %; Neutrophils # 5.51 10^3/uL (1.8-7.7); Neutrophils % 70.8 %; Nucleated Red Blood Cells % 0 %; Platelet Count 137 10^3/cmm (130-400); Red Blood Count 4.61 10^6/uL (4.1-5.3); Red Cell Distribution Width 20.7 % (12.1-15.1); White Blood Count 7.8 10^3/uL (4.0-10.0)
[2022-12-14 07:48] LABS: Anion Gap 12.2 (5-19); Blood Urea Nitrogen 22 mg/dL (8-23); Calcium 8.5 mg/dL (8.5-10.5); Carbon Dioxide 25 mmol/L (22-29); Chloride 107 mmol/L (98-107); Creatine Phosphokinase 20 U/L (39-308); Glucose 114 mg/dL (65-115); Osmolality Calculated 294 mOsm/kg (285-295); Potassium 4.2 mmol/L (3.5-5.1); Sodium 140 mmol/L (136-145)
[2022-12-14 08:05] LABS: Specific Gravity, Urine 1.025 (1.005-1.030); Urine Appearance SL Hazy (CLEAR); Urine Color Dark Yellow (Yellow); pH Urine 5 (5-7)
[2022-12-14 08:06] LABS: Add Urine Microscopic? YES; Bilirubin Urine 1+ (Negative); Blood Urine Neg (Negative); Glucose Urine UA Norm (Normal); Ketones Urine 1+ (Negative); Leukocyte Esterase Urine 2+ (Negative); Nitrate Urine Negative (Negative); Protein Urine Trace (Negative); Urobilinogen Urine Norm (Negative)
--- NOTE | 2022-12-14 08:18 | PC.NURSE ---
PT PERFORMED NIH ASSESSMENT AT BEDSIDE DUE TO FAMILY REPORTING PT MAY HAVE INCREASED SLURRED SPEECH. PHYSICIAN SCORED NIH - 0.
[2022-12-14 08:20] LABS: RBC Urine 0-4 /hpf (0-2); Squamous Epithelial Cell Urine 0-4 /hpf (0-5)
[2022-12-14 08:21] LABS: Add Urine Culture? No; Amorphous Sediment Urine TRACE /hpf; Bacteria Urine TRACE /hpf; Hyaline Casts Urine 0-4 /lpf; Mucus Urine 2+ /hpf
== END 2022-12-14 09:50 | disposition home or self-care (01) ==
PROVIDERS: Emergency Provider Family Medicine; PCP Physician Assistant
DX: S32.020A Wedge compression fracture of second lumbar vertebra, initial encounter for closed fracture (principal); S32.040A Wedge compression fracture of fourth lumbar vertebra, initial encounter for closed fracture; M54.16 Radiculopathy, lumbar region; N30.90 Cystitis, unspecified without hematuria; Z86.73 Personal history of transient ischemic attack (TIA), and cerebral infarction without residual deficits; E11.9 Type 2 diabetes mellitus without complications; E78.5 Hyperlipidemia, unspecified; I10 Essential (primary) hypertension; Z87.891 Personal history of nicotine dependence; W06.XXXA Fall from bed, initial encounter
CPT/HCPCS: 72100; 80048; 81001; 82550; 85025; 99284